=== PATIENT | male | born 1955 | race Caucasian/White ===

== ENCOUNTER 2017-09-14 12:22 | Emergency (ER) | payer OTHER ==
[~2017-09-14] VITALS: Ht 175.3 cm; Wt 86.2 kg
[~2017-09-14 12:22] MED LIST: ACETAMINOPHEN-1 EAC1 PO; AMOXICILLIN 50500 MG PO; BACTRIM DS TAB1 EACH PO; CARISOPRODOL 3350 MG PO; CLEOCIN HCL300 MG PO; CYCLOBENZAPRINE5 MG PO; DAYPRO600 MG PO; FLEXERIL PO; HCTZ PO; HYDROCODON-ACE1 EAC7 PO; HYDROCODONE-AP1 EAC6 PO; HYDROCODONE-APA1 TA1 PO; IBUPROFEN 800800 M1 PO; IBUPROFEN 800800 MG PO; LIORESAL 10 MG10 MG PO; LOVASTAT20; MECLIZINE HCL25 M1 PO; MEDROL DOSPAK21 TA1 PO; MEDROL DOSPAK21 TAB PO; MEDROLDOSEPACK PO; MELOXICAM7.5 MG PO; NAPROSYN375 MG PO; NAPROSYN500 MG PO; NEURONTIN 300300 M1 PO; NEURONTIN 300M300 M2; NEURONTIN600 MG PO; NEXIUM40 MG PO; NORCO 5-325 TA1 EAC1 PO; NORCO 5-325 TA1 EACH PO; NORFLEX100 MG PO; OMEPRAZOLE20 M1 PO; PAROXETINE HCL20 MG; PAROXETINE HCL40 MG PO; PAXIL 20 MG TAB20 MG PO; PENICILLIN V P500 MG PO; PENICILLIN VK250 MG PO; PENICILLIN VK500 M1 PO; PERCOCET 5-3251 EACH PO; PREDNISONE 20 M20 M1 PO; PREDNISONE 20 M20 MG PO; PRILOSEC 10MG C10 M1 PO; PRILOSEC OTC20 MG PO; PRILOSEC20 MG PO; ROBAXIN 750 MG750 M1 PO; ROBAXIN 750 MG750 MG PO; ROBAXIN500 MG PO; SKELAXIN 800 M800 M1 PO; TRAMADOL 50 MG50 MG PO; ULTRAM 50MG TAB50 MG PO; ULTRAM50 MG PO; VALIUM5 MG PO; VICODIN 5-3001 EACH PO; VICODIN 5-5001 EACH PO; ZANTAC 150MG T150 M1; ZANTAC 7575 MG; ZOFRAN ODT4 MG PO; ZPAK PO
[2017-09-14 12:35] VITALS: BP 169/98
[2017-09-14] MEDS ORDERED: MEDROLDOSEPACK PO (13:09)
[2017-09-14] MEDS ORDERED: HYDROCODONE-AP1 EAC6 PO (13:09)
== END 2017-09-14 13:26 | disposition home or self-care (01) ==
LOC: M.ERS 12:22
DX: R51 Headache (principal); M54.5 Low back pain; I10 Essential (primary) hypertension; K21.9 Gastro-esophageal reflux disease without esophagitis; F41.9 Anxiety disorder, unspecified; G89.29 Other chronic pain; Z88.5 Allergy status to narcotic agent

== ENCOUNTER 2017-11-15 21:20 | Emergency (ER) | payer OTHER ==
[~2017-11-15] VITALS: Ht 177.8 cm; Wt 86.2 kg
[2017-11-15] MEDS ORDERED: VENTOLIN HFA 1818 GM INH (21:51)
[2017-11-15] MEDS ORDERED: AMOXICILLIN 50500 MG PO (21:51)
[2017-11-15] MEDS ORDERED: PREDNISONE 20 M20 M1 PO (21:51)
[2017-11-15] MEDS ORDERED: NORCO 5-325 TA1 EACH PO (21:51)
[2017-11-15 22:07] VITALS: BP 170/100
== END 2017-11-15 22:10 | disposition home or self-care (01) ==
LOC: M.ERS 21:20
DX: J06.9 Acute upper respiratory infection, unspecified (principal); I10 Essential (primary) hypertension; K21.9 Gastro-esophageal reflux disease without esophagitis; F41.9 Anxiety disorder, unspecified; Z88.5 Allergy status to narcotic agent

== ENCOUNTER 2017-12-09 20:36 | Emergency (ER) | payer OTHER ==
[~2017-12-09] VITALS: Ht 177.8 cm; Wt 61.2 kg
[~2017-12-09 20:36] MED LIST changes: +VENTOLIN HFA 1818 GM INH
[2017-12-09] MEDS ORDERED: HYDROCODONE-AP1 EAC6 PO (21:04)
[2017-12-09 21:10] VITALS: BP 163/89
== END 2017-12-09 21:11 | disposition home or self-care (01) ==
LOC: M.ERS 20:36
DX: M54.2 Cervicalgia (principal); M54.5 Low back pain; G89.29 Other chronic pain; K21.9 Gastro-esophageal reflux disease without esophagitis; I10 Essential (primary) hypertension; Z88.5 Allergy status to narcotic agent

== ENCOUNTER 2018-01-11 11:04 | Emergency (ER) | payer OTHER ==
[~2018-01-11] VITALS: Ht 177.8 cm; Wt 86.2 kg
[2018-01-11 11:44] LABS: ABSOLUTE BASOPHILS 0.1 thou/uL (0.0-0.2); ABSOLUTE EOSINOPHILS 0.1 thou/uL (0.0-0.7); ABSOLUTE LYMPHOCYTES 1.6 thou/uL (0.8-5.3); ABSOLUTE MONOCYTES 0.4 thou/uL (0.0-1.2); ABSOLUTE NEUTROPHILS 4.6 thou/uL (1.6-8.1); BASOPHILS 1.1 %; EOSINOPHILS 1.8 %; HEMATOCRIT 42.5 % (42.0-52.0); MCH 27.2 pg (26.0-34.0); MCHC 32.8 g/dL (28.0-37.0); MONOCYTES 6.5 %; MPV 7.5 fl. (7.2-11.1); NUCLEATED RBCS 0 /100WBC; PLATELET COUNT* 283 thou/uL (150-400); POLYS 66.6 %; RBC 5.13 mil/uL (4.50-6.00); WBC 6.8 thou/uL (4.0-11.0)
[2018-01-11 11:54] LABS: ANION GAP 8 mmol/L (7-16); BUN 11 mg/dL (7-18); CHLORIDE 107 mmol/L (98-107); CO2 28 mmol/L (21-32); CREATININE 0.9 mg/dL (0.6-1.3); GLUCOSE 124 mg/dL (70-99); SODIUM 143 mmol/L (136-145)
[2018-01-11 12:01] LABS: ALBUMIN 3.6 g/dL (3.4-5.0); ALKALINE PHOSPHATASE 132 U/L (46-116); SGOT 19 U/L (15-37); SGPT 33 U/L (30-65); TOTAL BILIRUBIN 0.3 mg/dL (<0.1-1.0); TOTAL PROTEIN 7.4 g/dL (6.4-8.2); TROPONIN-I LEVEL <0.06 ng/mL (<0.06)
[2018-01-11] MEDS ORDERED: TORADOL 10 MG T10 MG PO (12:33)
[2018-01-11 12:43] VITALS: BP 158/93
--- NOTE | 2018-01-12 13:22 | EKG ---
[place] [address] ELECTROCARDIOGRAM REPORT Name: LUIS SCHREIBER Room: [facility]#: [id number] Admission: 01/11/18 Attend Phys: Discharge: 01/11/18 Date of : 59 Report #: [id number] THIS REPORT FOR: //name// [facility] ED Test Date: 2018-01-11 Test Time: 11:31:27 Pat Name: LUIS SCHREIBER Department: Room: Gender: M Retort Or Condenser Press Operator: Jeevan QUISPE : 1955 Requested By: Sarah Farrell Order Number: [id number] MD: Andrzej Dyson Measurements Intervals [place] Rate: 62 P: 69 NC: 99 QRS: 25 QRSD: 97 T: 50 QT: 419 QTc: 426 Interpretive Statements Sinus rhythm Short [place] interval Compared to ECG 07/24/2017 16:54:59 Short NC interval now present Sinus tachycardia no longer present Electronically Signed On 01-12-2018 13:22:42 CDT by Andrzej Dyson [email or web address] <ELECTRONICALLY SIGNED> By: Andrzej Dyson MD, [facility] 01/12/18 1322 1131 113 Andrzej Dyson MD, FACC /EPI
== END 2018-01-11 12:44 | disposition home or self-care (01) ==
LOC: M.ERS 11:04
PROVIDERS: Nurse Practitioner Family
DX: S43.492A Other sprain of left shoulder joint, initial encounter (principal); G89.29 Other chronic pain; M54.2 Cervicalgia; F41.9 Anxiety disorder, unspecified; I10 Essential (primary) hypertension; K21.9 Gastro-esophageal reflux disease without esophagitis; Z88.5 Allergy status to narcotic agent; Z88.6 Allergy status to analgesic agent; X50.9XXA Other and unspecified overexertion or strenuous movements or postures, initial encounter; Y93.89 Activity, other specified; Y92.89 Other specified places as the place of occurrence of the external cause; Y99.8 Other external cause status

== ENCOUNTER 2018-02-19 10:40 | Emergency (ER) | payer OTHER ==
[~2018-02-19] VITALS: Ht 177.8 cm; Wt 86.2 kg
[~2018-02-19 10:40] MED LIST changes: +TORADOL 10 MG T10 MG PO
[2018-02-19] MEDS ORDERED: NORCO 5-325 TA1 EACH PO (11:21)
[2018-02-19] MEDS ORDERED: IBUPROFEN 800800 MG PO (11:21)
[2018-02-19 11:35] VITALS: BP 172/92
== END 2018-02-19 11:36 | disposition home or self-care (01) ==
LOC: M.ERS 10:40
DX: M25.512 Pain in left shoulder (principal); K21.9 Gastro-esophageal reflux disease without esophagitis; G89.29 Other chronic pain; M54.2 Cervicalgia; F41.9 Anxiety disorder, unspecified; I10 Essential (primary) hypertension; Z88.5 Allergy status to narcotic agent; Z88.6 Allergy status to analgesic agent

== ENCOUNTER 2018-05-07 11:06 | Emergency (ER) | payer OTHER ==
[~2018-05-07] VITALS: Ht 177.8 cm; Wt 83.9 kg
[2018-05-07] MEDS ORDERED: PAXIL10 MG PO (11:24)
[2018-05-07] MEDS ORDERED: PROTONIX40 M1 PO (11:24)
[2018-05-07] MEDS ORDERED: FLEXERIL PO (11:49)
[2018-05-07] MEDS ORDERED: IBUPROFEN 800800 M1 PO (11:49)
[2018-05-07] MEDS ORDERED: NORCO 5-325 TA1 EACH PO (11:49)
[2018-05-07 12:16] VITALS: BP 146/72
== END 2018-05-07 12:16 | disposition home or self-care (01) ==
LOC: M.ERS 11:06
DX: M54.5 Low back pain (principal); F41.9 Anxiety disorder, unspecified; I10 Essential (primary) hypertension; K21.9 Gastro-esophageal reflux disease without esophagitis; G89.29 Other chronic pain; M54.2 Cervicalgia; Z88.5 Allergy status to narcotic agent; Z88.6 Allergy status to analgesic agent

== ENCOUNTER 2018-05-12 15:26 | Emergency (ER) | payer OTHER ==
[~2018-05-12] VITALS: Ht 177.8 cm; Wt 83.9 kg
[~2018-05-12 15:26] MED LIST changes: +PAXIL10 MG PO; +PROTONIX40 M1 PO
[2018-05-12] MEDS ORDERED: NAPROSYN500 MG PO (16:18)
[2018-05-12] MEDS ORDERED: MEDROLDOSEPACK PO (16:18)
[2018-05-12] MEDS ORDERED: ZANAFLEX4 MG PO (16:18)
[2018-05-12 16:26] VITALS: BP 186/99
== END 2018-05-12 16:26 | disposition home or self-care (01) ==
LOC: M.ERS 15:26
DX: M54.32 Sciatica, left side (principal); G89.29 Other chronic pain; M54.2 Cervicalgia; F41.9 Anxiety disorder, unspecified; K21.9 Gastro-esophageal reflux disease without esophagitis; I10 Essential (primary) hypertension; Z88.5 Allergy status to narcotic agent; Z88.6 Allergy status to analgesic agent

== ENCOUNTER 2018-06-02 19:38 | Emergency (ER) | payer OTHER ==
[~2018-06-02] VITALS: Ht 177.8 cm; Wt 86.2 kg
[~2018-06-02 19:38] MED LIST changes: +ZANAFLEX4 MG PO
[2018-06-02] MEDS ORDERED: PRILOSEC 20 MG20 MG (19:51)
[2018-06-02 21:37] LABS: ABSOLUTE BASOPHILS 0.1 thou/uL (0.0-0.2); ABSOLUTE EOSINOPHILS 0.1 thou/uL (0.0-0.7); ABSOLUTE LYMPHOCYTES 2.2 thou/uL (0.8-5.3); ABSOLUTE MONOCYTES 0.6 thou/uL (0.0-1.2); ABSOLUTE NEUTROPHILS 5.5 thou/uL (1.6-8.1); BASOPHILS 1.2 %; EOSINOPHILS 1.7 %; HEMATOCRIT 39.4 % (42.0-52.0); HEMOGLOBIN 12.8 gm/dL (14.0-18.0); LYMPHOCYTES 25.9 %; MCH 26.6 pg (26.0-34.0); MCHC 32.5 g/dL (28.0-37.0); MCV 81.8 fL (80.0-100.0); MONOCYTES 6.7 %; MPV 7.7 fl. (7.2-11.1); NUCLEATED RBCS 0 /100WBC; PLATELET COUNT* 271 thou/uL (150-400); POLYS 64.5 %; RBC 4.82 mil/uL (4.50-6.00); RDW-CV 15.2 % (10.5-14.5); WBC 8.6 thou/uL (4.0-11.0)
[2018-06-02 21:43] LABS: ANION GAP 7 mmol/L (7-16); BUN 14 mg/dL (7-18); CALCIUM 8.3 mg/dL (8.5-10.1); CHLORIDE 106 mmol/L (98-107); CO2 28 mmol/L (21-32); CREATININE 0.9 mg/dL (0.6-1.3); GLUCOSE 135 mg/dL (70-99); POTASSIUM 3.6 mmol/L (3.5-5.1); SODIUM 141 mmol/L (136-145)
[2018-06-02 21:50] LABS: ALBUMIN 3.2 g/dL (3.4-5.0); ALKALINE PHOSPHATASE 108 U/L (46-116); SGOT 23 U/L (15-37); SGPT 29 U/L (30-65); TOTAL BILIRUBIN 0.2 mg/dL (<0.1-1.0); TOTAL PROTEIN 7.1 g/dL (6.4-8.2); TROPONIN-I LEVEL <0.06 ng/mL (<0.06)
[2018-06-02] MEDS ORDERED: HYDROCHLOROTH12.5 M1 PO (22:36)
[2018-06-02] MEDS ORDERED: ZESTRIL2.5 MG PO (22:36)
[2018-06-02] MEDS ORDERED: ZESTORETIC 20-1 EAC2 PO (22:55)
[2018-06-02 23:01] VITALS: BP 157/91
--- NOTE | 2018-06-03 13:04 | EKG ---
[place] [address] ELECTROCARDIOGRAM REPORT Name: LUIS SCHREIBER Room: [facility]#: [id number] Admission: 06/02/18 Attend Phys: Discharge: 06/02/18 Date of : 59 Report #: [id number] THIS REPORT FOR: //name// [facility] ED Test Date: 2018-06-02 Test Time: 21:43:02 Pat Name: LUIS SCHREIBER Department: Room: Gender: M Inspector Welded Parts: : 1955 Requested By: Rachelle Guerrier Order Number: [id number] MD: Jose Hatch Measurements Intervals [place] Rate: 58 P: 65 NH: 110 QRS: 35 QRSD: 85 T: 41 QT: 427 QTc: 420 Interpretive Statements Sinus rhythm Borderline short [place] interval Probable left atrial enlargement Compared to ECG 01/11/2018 11:31:27 No significant changes Electronically Signed On 06-03-2018 13:03:45 CDT by Jose Hatch [email or web address] <ELECTRONICALLY SIGNED> By: Jose Hatch MD, [facility] 06/03/18 1303 42 42 Jose Hatch MD, [facility] /EPI
== END 2018-06-02 23:03 | disposition home or self-care (01) ==
LOC: M.ERS 19:38
PROVIDERS: Nurse Practitioner Family
DX: I10 Essential (primary) hypertension (principal); K21.9 Gastro-esophageal reflux disease without esophagitis; F41.9 Anxiety disorder, unspecified; Z88.5 Allergy status to narcotic agent; Z88.6 Allergy status to analgesic agent

== ENCOUNTER 2018-06-18 11:29 | Emergency (ER) | payer OTHER ==
[~2018-06-18] VITALS: Ht 177.8 cm; Wt 79.4 kg
[~2018-06-18 11:29] MED LIST changes: +HYDROCHLOROTH12.5 M1 PO; +PRILOSEC 20 MG20 MG; +ZESTORETIC 20-1 EAC2 PO; +ZESTRIL2.5 MG PO
[2018-06-18 12:08] LABS: ABSOLUTE BASOPHILS 0.1 thou/uL (0.0-0.2); ABSOLUTE EOSINOPHILS 0.1 thou/uL (0.0-0.7); ABSOLUTE LYMPHOCYTES 2.3 thou/uL (0.8-5.3); ABSOLUTE MONOCYTES 0.6 thou/uL (0.0-1.2); BASOPHILS 0.9 %; EOSINOPHILS 1.1 %; HEMATOCRIT 46.5 % (42.0-52.0); HEMOGLOBIN 15.2 gm/dL (14.0-18.0); LYMPHOCYTES 25.6 %; MCH 26.4 pg (26.0-34.0); MCHC 32.6 g/dL (28.0-37.0); MCV 80.8 fL (80.0-100.0); MPV 7.4 fl. (7.2-11.1); NUCLEATED RBCS 0 /100WBC; PLATELET COUNT* 320 thou/uL (150-400); POLYS 65.4 %; RBC 5.75 mil/uL (4.50-6.00); RDW-CV 14.9 % (10.5-14.5); WBC 9.1 thou/uL (4.0-11.0)
[2018-06-18 12:17] LABS: ANION GAP 8 mmol/L (7-16); BUN 14 mg/dL (7-18); CHLORIDE 100 mmol/L (98-107); CO2 29 mmol/L (21-32); GLUCOSE 104 mg/dL (70-99); POTASSIUM 3.1 mmol/L (3.5-5.1); SODIUM 137 mmol/L (136-145)
[2018-06-18 12:28] LABS: ALKALINE PHOSPHATASE 129 U/L (46-116); LIPASE 212 U/L (73-393); NT-PRO BRAIN NAT PEPTIDE 15 pg/mL (<300); SGOT 27 U/L (15-37); SGPT 33 U/L (30-65); TOTAL BILIRUBIN 0.6 mg/dL (<0.1-1.0); TOTAL PROTEIN 8.6 g/dL (6.4-8.2); TROPONIN-I LEVEL <0.06 ng/mL (<0.06)
[2018-06-18] MEDS ORDERED: HYDROCODONE-AP1 EAC6 PO (13:35)
[2018-06-18] MEDS ORDERED: PENICILLIN V P500 MG PO (13:35)
[2018-06-18] MEDS ORDERED: FLEXERIL PO (13:35)
[2018-06-18 14:19] VITALS: BP 148/83
--- NOTE | 2018-06-18 17:28 | EKG ---
[place] [address] ELECTROCARDIOGRAM REPORT Name: LUIS SCHREIBER [id number] Admission: 06/18/18 Attend Phys: Discharge: 06/18/18 Date of : 59 Report #: [id number] THIS REPORT FOR: //name// [facility] ED Test Date: 2018-06-18 Test Time: 12:00:13 Pat Name: LUIS SCHREIBER Department: Room: Gender: M Sample Case Porter: : 1955 Requested By: Anthony Mullen Order Number: [id number] : Sukumar Barrios Measurements Intervals [place] Rate: 72 P: 51 AR: 108 QRS: 23 QRSD: 99 T: 35 QT: 411 QTc: 450 Interpretive Statements Sinus rhythm Short AR interval Compared to ECG 06/02/2018 21:43:02 No significant changes Electronically Signed On 06-18-2018 17:28:35 CDT by Sukumar Barrios [email or web address] <ELECTRONICALLY SIGNED> By: Sukumar Barrios MD, [facility] 06/18/18 [address] [facility] Sukumar Barrios MD, FACC /EPI
--- NOTE | 2018-06-18 17:30 | EKG ---
[place] [address] ELECTROCARDIOGRAM REPORT Name: LUIS SCHREIBER Room: [facility]#: [id number] Admission: 06/18/18 Attend Phys: Discharge: 06/18/18 Date of : 59 Report #: [id number] THIS REPORT FOR: //name// [facility] ED Test Date: 2018-06-18 Test Time: 13:49:32 Pat Name: LUIS SCHREIBER Department: Room: Gender: M Forward Air Controller/Air Officer: Jeevan QUISPE : 1955 Requested By: Anthony Mullen Order Number: [id number] MD: Sukumar Barrios Measurements Intervals [place] Rate: 93 P: 61 MI: 106 QRS: 13 QRSD: 100 T: 42 QT: 378 QTc: 471 Interpretive Statements Sinus rhythm Short [place] interval Abnormal R-wave progression, early transition Abnormal inferior Q waves Minimal ST depression, lateral leads Compared to ECG 06/02/2018 21:43:02 Inferior Q waves now present Q waves now present ST (T wave) deviation now present Electronically Signed On 06-18-2018 17:30:02 CDT by Sukumar Barrios [email or web address] <ELECTRONICALLY SIGNED> By: Sukumar Barrios MD, FAC 06/18/18 1730 1349 1349 Sukumar Barrios MD, [facility] /EPI
== END 2018-06-18 14:20 | disposition left against medical advice (07) ==
LOC: M.ERS 11:29
PROVIDERS: Emergency Medicine Emergency Medical Services
DX: R07.9 Chest pain, unspecified (principal); M26.602 Left temporomandibular joint disorder, unspecified; F41.9 Anxiety disorder, unspecified; K21.9 Gastro-esophageal reflux disease without esophagitis; I10 Essential (primary) hypertension; Z88.5 Allergy status to narcotic agent; Z88.8 Allergy status to other drugs, medicaments and biological substances

== ENCOUNTER 2018-07-14 09:14 | Emergency (ER) | payer OTHER ==
[~2018-07-14] VITALS: Ht 177.8 cm; Wt 77.1 kg
[2018-07-14 09:29] LABS: URINE BILIRUBIN NEGATIVE (Negative); URINE BLOOD NEGATIVE (Negative); URINE CLARITY CLEAR; URINE COLOR YELLOW; URINE GLUCOSE-RANDOM NEGATIVE (Negative); URINE KETONES NEGATIVE (Negative); URINE LEUKOCYTES-REFLEX NEGATIVE (Negative); URINE NITRITE-REFLEX NEGATIVE (Negative); URINE PROTEIN NEGATIVE (Negative); URINE SPECIFIC GRAVITY 1.025 (1.005-1.030); URINE UROBILINOGEN 0.2 E.U./dl (0.2-1.0)
[2018-07-14 09:38] LABS: ABSOLUTE LYMPHOCYTES 1.8 thou/uL (0.8-5.3); ABSOLUTE MONOCYTES 0.6 thou/uL (0.0-1.2); BASOPHILS 0.5 %; EOSINOPHILS 0.3 %; HEMATOCRIT 44.3 % (42.0-52.0); HEMOGLOBIN 14.6 gm/dL (14.0-18.0); LYMPHOCYTES 19.4 %; MCH 26.8 pg (26.0-34.0); MCV 81.4 fL (80.0-100.0); MONOCYTES 6.3 %; MPV 7.2 fl. (7.2-11.1); NUCLEATED RBCS 0 /100WBC; PLATELET COUNT* 329 thou/uL (150-400); POLYS 73.5 %; RBC 5.44 mil/uL (4.50-6.00); RDW-CV 15.3 % (10.5-14.5); WBC 9.5 thou/uL (4.0-11.0)
[2018-07-14 09:46] LABS: ANION GAP 7 mmol/L (7-16); BUN 14 mg/dL (7-18); CHLORIDE 99 mmol/L (98-107); CO2 30 mmol/L (21-32); GLUCOSE 126 mg/dL (70-99); POTASSIUM 3.5 mmol/L (3.5-5.1); SODIUM 136 mmol/L (136-145)
[2018-07-14 09:52] LABS: ALBUMIN 3.8 g/dL (3.4-5.0); ALKALINE PHOSPHATASE 120 U/L (46-116); LIPASE 132 U/L (73-393); SGOT 18 U/L (15-37); SGPT 31 U/L (30-65); TOTAL BILIRUBIN 0.2 mg/dL (<0.1-1.0); TOTAL PROTEIN 7.9 g/dL (6.4-8.2); TROPONIN-I LEVEL <0.06 ng/mL (<0.06)
[2018-07-14] MEDS ORDERED: HYDROCODONE-AP1 EAC6 PO (10:58)
[2018-07-14] MEDS ORDERED: ZOFRAN ODT4 MG DISSOLVE (10:58)
[2018-07-14 11:18] VITALS: BP 162/85
--- NOTE | 2018-07-14 17:53 | EKG ---
[place] [address] ELECTROCARDIOGRAM REPORT Name: LUIS SCHREIBER Room: [facility]#: [id number] Admission: 07/14/18 Attend Phys: Discharge: 07/14/18 Date of : 59 Report #: [id number] THIS REPORT FOR: //name// [facility] ED Test Date: 2018-07-14 Test Time: 09:32:19 Pat Name: LUIS SCHREIBER Department: Room: Gender: M Director Pediatric: Jeevan QUISPE : 1955 Requested By: Anthony Mullen Order Number: [id number] MD: Andrzej Dyson Measurements Intervals [place] Rate: 90 P: 63 RI: 109 QRS: 20 QRSD: 103 T: 35 QT: 370 QTc: 453 Interpretive Statements Sinus rhythm Short [place] interval RSR' in V1 or V2, probably normal variant Minimal ST depression, lateral leads Compared to ECG 06/18/2018 13:49:32 RSR' in V1 or V2 now present Inferior Q waves no longer present Q waves no longer present ST (T wave) deviation still present Electronically Signed On 07-14-2018 17:53:22 CDT by Andrzej Dyson [email or web address] <ELECTRONICALLY SIGNED> By: Andrzej Dyson MD, FACC 07/14/18 1753 0932 0932 Andrzej Dyson MD, FACC /EPI
== END 2018-07-14 11:18 | disposition home or self-care (01) ==
LOC: M.ERS 09:14
PROVIDERS: Emergency Medicine Emergency Medical Services
DX: K42.9 Umbilical hernia without obstruction or gangrene (principal); G89.29 Other chronic pain; M54.2 Cervicalgia; F41.9 Anxiety disorder, unspecified; I10 Essential (primary) hypertension; K21.9 Gastro-esophageal reflux disease without esophagitis; Z88.5 Allergy status to narcotic agent; Z88.6 Allergy status to analgesic agent

== ENCOUNTER 2018-07-31 20:52 | Emergency (ER) | payer OTHER ==
[~2018-07-31] VITALS: Ht 177.8 cm; Wt 77.1 kg
[~2018-07-31 20:52] MED LIST changes: +ZOFRAN ODT4 MG DISSOLVE
[2018-07-31] MEDS ORDERED: NORCO 5-325 TA1 EAC1 PO (22:31)
[2018-07-31 22:41] VITALS: BP 167/93
== END 2018-07-31 22:43 | disposition home or self-care (01) ==
LOC: M.ERS 20:52
DX: S30.0XXA Contusion of lower back and pelvis, initial encounter (principal); G89.29 Other chronic pain; M54.2 Cervicalgia; F41.9 Anxiety disorder, unspecified; K21.9 Gastro-esophageal reflux disease without esophagitis; I10 Essential (primary) hypertension; Z88.5 Allergy status to narcotic agent; Z88.6 Allergy status to analgesic agent; W18.39XA Other fall on same level, initial encounter; Y93.89 Activity, other specified; Y92.89 Other specified places as the place of occurrence of the external cause; Y99.8 Other external cause status

== ENCOUNTER 2018-08-26 12:20 | Emergency (ER) | payer OTHER ==
[~2018-08-26] VITALS: Ht 177.8 cm; Wt 81.7 kg
[2018-08-26 12:51] LABS: ABSOLUTE BASOPHILS 0.1 thou/uL (0.0-0.2); ABSOLUTE EOSINOPHILS 0.1 thou/uL (0.0-0.7); ABSOLUTE LYMPHOCYTES 1.4 thou/uL (0.8-5.3); ABSOLUTE MONOCYTES 0.7 thou/uL (0.0-1.2); ABSOLUTE NEUTROPHILS 10.1 thou/uL (1.6-8.1); BASOPHILS 0.4 %; EOSINOPHILS 0.8 %; HEMATOCRIT 41.4 % (42.0-52.0); HEMOGLOBIN 13.5 gm/dL (14.0-18.0); LYMPHOCYTES 11.4 %; MCH 26.5 pg (26.0-34.0); MCHC 32.7 g/dL (28.0-37.0); MONOCYTES 5.8 %; MPV 7.2 fl. (7.2-11.1); NUCLEATED RBCS 0 /100WBC; PLATELET COUNT* 247 thou/uL (150-400); POLYS 81.6 %; RBC 5.11 mil/uL (4.50-6.00); RDW-CV 15.6 % (10.5-14.5); WBC 12.4 thou/uL (4.0-11.0)
[2018-08-26 13:03] LABS: ANION GAP 8 mmol/L (7-16); BUN 12 mg/dL (7-18); CALCIUM 8.9 mg/dL (8.5-10.1); CHLORIDE 104 mmol/L (98-107); CO2 27 mmol/L (21-32); GLUCOSE 121 mg/dL (70-99); POTASSIUM 4.1 mmol/L (3.5-5.1); SODIUM 139 mmol/L (136-145)
[2018-08-26 13:07] LABS: APTT 28.2 Seconds (25.0-31.3); PROTIME 10.5 Seconds (9.20-11.50)
[2018-08-26 13:22] LABS: ALBUMIN 3.6 g/dL (3.4-5.0); ALKALINE PHOSPHATASE 117 U/L (46-116); LIPASE 90 U/L (73-393); NT-PRO BRAIN NAT PEPTIDE 123 pg/mL (<300); SGOT 14 U/L (15-37); SGPT 27 U/L (30-65); TOTAL BILIRUBIN 0.3 mg/dL (<0.1-1.0); TOTAL PROTEIN 7.5 g/dL (6.4-8.2); TROPONIN-I LEVEL <0.06 ng/mL (<0.06)
[2018-08-26 13:51] VITALS: BP 172/88
--- NOTE | 2018-08-26 14:32 | EKG ---
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: JESIKA : 1955 Requested By: Daniel Luna Order Number: [id number] MD: Jose Hatch Measurements Intervals [place] Rate: 78 P: 71 DE: 114 QRS: 41 QRSD: 96 T: 37 QT: 376 QTc: 429 Interpretive Statements Sinus rhythm Atrial premature complexes Borderline short [place] interval RSR' in V1 or V2, right VCD or RVH Compared to ECG 07/14/2018 09:32:19 Atrial premature complex(es) now present Right ventricular hypertrophy now present ST (T wave) deviation no longer present Electronically Signed On 08-26-2018 14:32:33 LIFE INSURANCE UNDERWRITER by Jose Hatch [email or web address] <ELECTRONICALLY SIGNED> By: Jose Hatch MD, FACC 08/26/18 1432 1224 1224 Jose Hatch MD, FACC /EPI
[2018-08-27 15:57] LABS: CK-MB MASS < 0.5 ng/mL (<0.5-3.6)
== END 2018-08-26 13:51 | disposition home or self-care (01) ==
LOC: M.ERS 12:20
PROVIDERS: Family Medicine
DX: R07.89 Other chest pain (principal); F41.9 Anxiety disorder, unspecified; K21.9 Gastro-esophageal reflux disease without esophagitis; I10 Essential (primary) hypertension; G89.29 Other chronic pain; M54.2 Cervicalgia; Z88.5 Allergy status to narcotic agent; Z88.6 Allergy status to analgesic agent

== ENCOUNTER 2018-09-03 20:48 | Emergency (ER) | payer OTHER ==
[~2018-09-03] VITALS: Ht 177.8 cm; Wt 80.7 kg
[2018-09-03 21:40] LABS: ABSOLUTE BASOPHILS 0.1 thou/uL (0.0-0.2); ABSOLUTE EOSINOPHILS 0.1 thou/uL (0.0-0.7); ABSOLUTE LYMPHOCYTES 3.4 thou/uL (0.8-5.3); ABSOLUTE MONOCYTES 1.2 thou/uL (0.0-1.2); ABSOLUTE NEUTROPHILS 7.5 thou/uL (1.6-8.1); BASOPHILS 1.1 %; EOSINOPHILS 0.7 %; HEMATOCRIT 42.1 % (42.0-52.0); HEMOGLOBIN 13.9 gm/dL (14.0-18.0); LYMPHOCYTES 27.9 %; MCH 26.8 pg (26.0-34.0); MCHC 33.1 g/dL (28.0-37.0); MCV 81.1 fL (80.0-100.0); MONOCYTES 9.4 %; MPV 7.5 fl. (7.2-11.1); NUCLEATED RBCS 0 /100WBC; PLATELET COUNT* 344 thou/uL (150-400); POLYS 60.9 %; RBC 5.19 mil/uL (4.50-6.00); RDW-CV 15.9 % (10.5-14.5); WBC 12.3 thou/uL (4.0-11.0)
[2018-09-03 21:50] LABS: ANION GAP 9 mmol/L (7-16); BUN 11 mg/dL (7-18); CALCIUM 9.1 mg/dL (8.5-10.1); CHLORIDE 101 mmol/L (98-107); CO2 29 mmol/L (21-32); CREATININE 1.1 mg/dL (0.6-1.3); GLUCOSE 105 mg/dL (70-99); POTASSIUM 4.1 mmol/L (3.5-5.1); SODIUM 139 mmol/L (136-145)
[2018-09-03 21:57] LABS: ALBUMIN 3.6 g/dL (3.4-5.0); ALKALINE PHOSPHATASE 102 U/L (46-116); LIPASE 227 U/L (73-393); SGOT 18 U/L (15-37); SGPT 33 U/L (30-65); TOTAL BILIRUBIN 0.3 mg/dL (<0.1-1.0); TOTAL PROTEIN 7.8 g/dL (6.4-8.2); TROPONIN-I LEVEL <0.06 ng/mL (<0.06)
[2018-09-03] MEDS ORDERED: ZOFRAN ODT4 MG SUBLING (22:35)
[2018-09-03] MEDS ORDERED: NORCO 5-325 TA1 EACH PO (22:35)
[2018-09-03 22:58] VITALS: BP 128/89
--- NOTE | 2018-09-05 14:46 | EKG ---
[place] [address] ELECTROCARDIOGRAM REPORT Name: LUIS SCHREIBER Room: [facility]#: [id number] Admission: 09/03/18 Attend Phys: Discharge: 09/03/18 Date of : 59 Report #: [id number] THIS REPORT FOR: //name// [facility] ED Test Date: 2018-09-03 Test Time: 21:57:16 Pat Name: LUIS SCHREIBER Department: Room: Gender: M Quartz Orientator: SABINO : 1955 Requested By: Daniel Luna Order Number: [id number] MD: Sukumar Barrios Measurements Intervals [place] Rate: 86 P: 47 MO: 110 QRS: 27 QRSD: 103 T: 34 QT: 394 QTc: 472 Interpretive Statements Sinus rhythm Borderline short [place] interval RSR' in V1 or V2, right VCD or RVH Compared to ECG 08/26/2018 12:24:00 Atrial premature complex(es) no longer present Electronically Signed On 09-05-2018 14:46:07 VESSEL WELDER by Sukumar Barrios [email or web address] <ELECTRONICALLY SIGNED> By: Sukumar Barrios MD, [facility] 09/05/18 1446 2157 2157 Sukumar Barrios MD, [facility] /EPI
== END 2018-09-03 23:00 | disposition home or self-care (01) ==
LOC: M.ERS 20:48
PROVIDERS: Family Medicine
DX: R10.84 Generalized abdominal pain (principal); R11.0 Nausea; R19.7 Diarrhea, unspecified; K21.9 Gastro-esophageal reflux disease without esophagitis; I10 Essential (primary) hypertension

== ENCOUNTER 2018-11-06 21:02 | Emergency (ER) | payer OTHER ==
[~2018-11-06] VITALS: Ht 177.8 cm; Wt 81.7 kg
[~2018-11-06 21:02] MED LIST changes: +ZOFRAN ODT4 MG SUBLING
[2018-11-06 21:20] LABS: URINE BILIRUBIN NEGATIVE (Negative); URINE BLOOD NEGATIVE (Negative); URINE CLARITY CLEAR; URINE COLOR YELLOW; URINE GLUCOSE-RANDOM NEGATIVE (Negative); URINE KETONES NEGATIVE (Negative); URINE LEUKOCYTES-REFLEX NEGATIVE (Negative); URINE NITRITE-REFLEX NEGATIVE (Negative); URINE PROTEIN NEGATIVE (Negative); URINE SPECIFIC GRAVITY >= 1.030 (1.005-1.030); URINE UROBILINOGEN 0.2 E.U./dl (0.2-1.0)
[2018-11-06 21:30] LABS: AMP/METHAMP Negative (Negative); BARBITURATES Negative (Negative); BENZODIAZEPINES Negative (Negative); COCAINE Negative (Negative); METHADONE Negative (Negative); OPIATES POSITIVE (Negative); PCP Negative (Negative); THC Negative (Negative)
[2018-11-06 21:30] LABS: ABSOLUTE BASOPHILS 0.1 thou/uL (0.0-0.2); ABSOLUTE EOSINOPHILS 0.1 thou/uL (0.0-0.7); ABSOLUTE LYMPHOCYTES 3.8 thou/uL (0.8-5.3); ABSOLUTE MONOCYTES 1.1 thou/uL (0.0-1.2); ABSOLUTE NEUTROPHILS 7.8 thou/uL (1.6-8.1); BASOPHILS 0.7 %; EOSINOPHILS 0.7 %; HEMATOCRIT 42.2 % (42.0-52.0); HEMOGLOBIN 13.8 gm/dL (14.0-18.0); LYMPHOCYTES 29.6 %; MCH 26.4 pg (26.0-34.0); MCHC 32.7 g/dL (28.0-37.0); MCV 80.7 fL (80.0-100.0); MONOCYTES 8.4 %; MPV 7.4 fl. (7.2-11.1); NUCLEATED RBCS 0 /100WBC; PLATELET COUNT* 327 thou/uL (150-400); POLYS 60.6 %; RBC 5.23 mil/uL (4.50-6.00); RDW-CV 15.7 % (10.5-14.5); WBC 12.8 thou/uL (4.0-11.0)
[2018-11-06 21:39] LABS: CALCIUM 9.1 mg/dL (8.5-10.1); POTASSIUM 3.3 mmol/L (3.5-5.1)
[2018-11-06 21:44] LABS: TOTAL BILIRUBIN 0.2 mg/dL (<0.1-1.0); TOTAL PROTEIN 8.1 g/dL (6.4-8.2)
[2018-11-06] MEDS ORDERED: NORCO 5-325 TA1 EACH PO (22:02)
[2018-11-06 22:47] VITALS: BP 145/87
--- NOTE | 2018-11-07 15:31 | EKG ---
[place] [address] ELECTROCARDIOGRAM REPORT Name: LUIS SCHREIBER [id number] Admission: 11/06/18 Attend Phys: Discharge: 11/06/18 Date of : 59 Report #: [id number] THIS REPORT FOR: //name// [facility] Test Date: 2018-11-06 Test Time: 21:30:12 Pat Name: LUIS SCHREIBER Department: Room: Gender: Manager Compensation: Jeevan VAUGHN : 1955 Requested By: Arielle Pisano Order Number: [id number] MD: Sukumar Barrios Measurements Intervals [place] Rate: 85 P: 43 ND: 108 QRS: 20 QRSD: 97 T: 53 QT: 382 QTc: 455 Interpretive Statements Sinus rhythm Short [place] interval Abnormal R-wave progression, early transition Electronically Signed On 11-07-2018 15:31:31 FACILITIES CUSTODIAN by Sukumar Barrios [email or web address] <ELECTRONICALLY SIGNED> By: Sukumar Barrios MD, [facility] 11/07/18 1531 213 2130 Sukumar Barrios MD, FACC /EPI
== END 2018-11-06 22:48 | disposition home or self-care (01) ==
LOC: M.ERS 21:02
PROVIDERS: Nurse Practitioner
DX: R10.30 Lower abdominal pain, unspecified (principal); M54.2 Cervicalgia; G89.29 Other chronic pain; M54.9 Dorsalgia, unspecified; F41.9 Anxiety disorder, unspecified; K21.9 Gastro-esophageal reflux disease without esophagitis; I10 Essential (primary) hypertension; Z88.5 Allergy status to narcotic agent; Z88.6 Allergy status to analgesic agent

== ENCOUNTER 2018-12-27 12:18 | Emergency (ER) | payer OTHER ==
[~2018-12-27] VITALS: Ht 177.8 cm; Wt 83.9 kg
[2018-12-27 13:03] LABS: ABSOLUTE EOSINOPHILS 0.1 thou/uL (0.0-0.7); ABSOLUTE LYMPHOCYTES 2.3 thou/uL (0.8-5.3); ABSOLUTE MONOCYTES 0.6 thou/uL (0.0-1.2); ABSOLUTE NEUTROPHILS 5.8 thou/uL (1.6-8.1); BASOPHILS 0.3 %; EOSINOPHILS 0.7 %; HEMATOCRIT 41.6 % (42.0-52.0); HEMOGLOBIN 13.6 gm/dL (14.0-18.0); LYMPHOCYTES 26.4 %; MCH 26.1 pg (26.0-34.0); MCHC 32.7 g/dL (28.0-37.0); MCV 79.8 fL (80.0-100.0); MONOCYTES 6.7 %; MPV 7.7 fl. (7.2-11.1); NUCLEATED RBCS 0 /100WBC; PLATELET COUNT* 295 thou/uL (150-400); POLYS 65.9 %; RBC 5.21 mil/uL (4.50-6.00); RDW-CV 15.9 % (10.5-14.5); WBC 8.8 thou/uL (4.0-11.0)
[2018-12-27] MEDS ORDERED: NORCO 5-325 TA1 EACH PO (13:07)
[2018-12-27 13:16] LABS: ALBUMIN 3.9 g/dL (3.4-5.0); POTASSIUM 3.3 mmol/L (3.5-5.1); TOTAL BILIRUBIN 0.4 mg/dL (<0.1-1.0); TOTAL PROTEIN 7.9 g/dL (6.4-8.2)
[2018-12-27] MEDS ORDERED: ZOFRAN ODT4 MG SUBLING (13:38)
[2018-12-27 13:47] VITALS: BP 168/88
== END 2018-12-27 13:48 | disposition home or self-care (01) ==
LOC: M.ERS 12:18
PROVIDERS: Family Medicine
DX: R10.9 Unspecified abdominal pain (principal); M54.2 Cervicalgia; G89.29 Other chronic pain; K21.9 Gastro-esophageal reflux disease without esophagitis; F41.9 Anxiety disorder, unspecified; I10 Essential (primary) hypertension; Z88.5 Allergy status to narcotic agent; Z88.6 Allergy status to analgesic agent

== ENCOUNTER 2019-01-08 09:32 | Emergency (ER) | payer OTHER ==
[~2019-01-08] VITALS: Ht 177.8 cm; Wt 80.7 kg
[2019-01-08] MEDS ORDERED: FLEXERIL PO (10:18)
[2019-01-08] MEDS ORDERED: NORCO 5-325 TA1 EACH PO (10:18)
[2019-01-08] MEDS ORDERED: NABUMETONE 750750 M1 PO (10:18)
[2019-01-08 10:34] VITALS: BP 142/72
== END 2019-01-08 10:35 | disposition home or self-care (01) ==
LOC: M.ERS 09:32
DX: S16.1XXA Strain of muscle, fascia and tendon at neck level, initial encounter (principal); G89.29 Other chronic pain; F41.9 Anxiety disorder, unspecified; K21.9 Gastro-esophageal reflux disease without esophagitis; I10 Essential (primary) hypertension; Z88.5 Allergy status to narcotic agent; Z88.8 Allergy status to other drugs, medicaments and biological substances; W22.03XA Walked into furniture, initial encounter; Y93.89 Activity, other specified; Y92.89 Other specified places as the place of occurrence of the external cause; Y99.8 Other external cause status

== ENCOUNTER 2019-02-18 19:23 | Inpatient (IN) | payer OTHER ==
[~2019-02-18] VITALS: Ht 177.8 cm; Wt 83.1 kg
[~2019-02-18 19:23] MED LIST changes: +NABUMETONE 750750 M1 PO
[2019-02-18 19:27] VITALS: BP 193/100
[2019-02-18 19:46] LABS: ABSOLUTE BASOPHILS 0.1 thou/uL (0.0-0.2); ABSOLUTE EOSINOPHILS 0.2 thou/uL (0.0-0.7); ABSOLUTE LYMPHOCYTES 2.4 thou/uL (0.8-5.3); ABSOLUTE MONOCYTES 0.7 thou/uL (0.0-1.2); ABSOLUTE NEUTROPHILS 6.6 thou/uL (1.6-8.1); BASOPHILS 0.6 %; EOSINOPHILS 1.7 %; HEMATOCRIT 39.7 % (42.0-52.0); HEMOGLOBIN 12.9 gm/dL (14.0-18.0); LYMPHOCYTES 24.1 %; MCHC 32.4 g/dL (28.0-37.0); MONOCYTES 7.3 %; MPV 7.4 fl. (7.2-11.1); NUCLEATED RBCS 0 /100WBC; PLATELET COUNT* 260 thou/uL (150-400); POLYS 66.3 %; RBC 4.96 mil/uL (4.50-6.00); RDW-CV 15.3 % (10.5-14.5)
[2019-02-18 19:53] LABS: ANION GAP 11 mmol/L (7-16); BUN 16 mg/dL (7-18); CALCIUM 8.6 mg/dL (8.5-10.1); CHLORIDE 106 mmol/L (98-107); CO2 27 mmol/L (21-32); CREATININE 1.1 mg/dL (0.6-1.3); GLUCOSE 126 mg/dL (70-99); POTASSIUM 3.6 mmol/L (3.5-5.1); SODIUM 144 mmol/L (136-145)
[2019-02-18 19:54] LABS: APTT 25.1 Seconds (25.0-31.3); PROTIME 10.7 Seconds (9.20-11.50)
[2019-02-18 20:03] LABS: ALBUMIN 3.7 g/dL (3.4-5.0); ALKALINE PHOSPHATASE 118 U/L (46-116); SGOT 20 U/L (15-37); SGPT 36 U/L (30-65); TOTAL BILIRUBIN 0.3 mg/dL (<0.1-1.0); TOTAL PROTEIN 7.6 g/dL (6.4-8.2); TROPONIN-I LEVEL <0.06 ng/mL (<0.06)
[2019-02-18 23:51] VITALS: BP 177/93
[2019-02-19] VITALS (8 sets, daily range): BP systolic 115–174; BP diastolic 51–85
[2019-02-19] MEDS ORDERED: PRILOSEC OTC20 MG PO (00:20)
--- NOTE | 2019-02-19 04:59 | NUR ---
Received report and assumed care of patient from ED approximately 2345. monitoring analyst in place tracing SR. Elevated BP reported to physician. Orders received to start patient's home BP medication. Administered per orders and improvement noted in BP. VSS. Patient's pain treated with relaxation and medication per mar. Patient sleeping at this time. NPO for cardiology consult today. Call light within reach
--- NOTE | 2019-02-19 09:41 | NUR ---
ASSUMED CARE OF PT AROUND 0730 THIS AM. REFER TO ASSESSMENT. PT NPO FOR CARDIOLOGY CONSULT. BLOOD PRESSURE WNL D/T RESTARTING HOME HTN MEDS ON PREVIOUS SHIFT. NO OTHER CONCERNS AT THIS TIME. CLWR. WCTM.
--- NOTE | 2019-02-19 11:35 | EKG ---
[place] [address] ELECTROCARDIOGRAM REPORT Name: LUIS SCHREIBER Room: [address] ADM IN M.R.#: [id number] Admission: 02/18/19 Attend Phys: Dolores Guerra Discharge: Date of : 59 Report #: [id number] THIS REPORT FOR: //name// [facility] ED Test Date: 2019-02-18 Test Time: 19:26:09 Pat Name: LUIS CANDIE Department: Room: [facility] Gender: M Interventional Nurse: MR : 1955 Requested By: Erin Hernandez Order Number: [id number] MD: Jose Hatch Measurements Intervals [place] Rate: 58 P: 47 AK: 112 QRS: 30 QRSD: 100 T: 27 QT: 427 QTc: 420 Interpretive Statements Sinus rhythm Borderline short [place] interval Probable left atrial enlargement Compared to ECG 11/06/2018 21:30:12 No significant changes Electronically Signed On 02-19-2019 11:35:24 CDT by Jose Hatch [email or web address] <ELECTRONICALLY SIGNED> By: Jose Hacth MD, [facility] 02/19/19 1135 192 25 Jose Hatch MD, [facility] /EPI
--- NOTE | 2019-02-19 14:15 | EXE ---
[place] [address] STRESS ECHOCARDIOGRAM Name: LUIS SCHREIBER Room: [address] M.R.#: [id number] Admission: 02/18/19 Attend Phys: Loraine Morales Discharge: Date of : 59 Date of Service: 02/19/19 1414 Report #: [id number] THIS REPORT FOR: //name// APPROVED REPORT Study performed: 02/19/2019 13:07:16 Exam: Stress Echocardiogram Indication: Chest pain Patient Location: In-Patient Stress Nurse: Sada Richardson RN Room #: [facility] Supervising Physician: Jose Hatch MD Status: routine Ht: 5 ft 10 in HR: 71 bpm BP: 142/93 mmHg Rhythm: NSR Medical History Medications: HCTZ Allergies: Codeine, tramadol Cardiac Risk Factors: HTN, FHX of CAD, Age Procedure The patient underwent an Exercise Stress Test using the Alex Protocol. Blood pressure, heart rate, and EKG were monitored. An Echocardiogram was performed by biomedical engineering technician in four stages in quad fashion. At peak stress, four selected images were obtained and placed side by side with resting images for comparison. Stress Test Details Stress Test: Exercise stress testing was performed using a Alex protocol. HR Resting HR: 71 bpm Max Heart Rate (APMHR): 159 bpm Max HR Achieved: 143 bpm Target HR (85% APMHR): 135 bpm % of APMHR: 89 Recovery HR: 69 bpm HR response to stress: Normal HR response to stress BP Resting BP: 142/93 mmHg Max BP: 211/96 mmHg Recovery BP: 141/[place] [address] STRESS ECHOCARDIOGRAM Name: LUIS SCHREIBER Room: [address]#: [id number] Admission: 02/18/19 Attend Phys: Loraine Morales Discharge: Date of : 59 Date of Service: 02/19/19 1414 Report #: [id number] BP response to stress: Normal blood pressure response to stress. ECG Clinical Reason for Termination: Maximal effort Exercise duration: 5 min 19 sec Highest Stage Achieved: Stage 2: 2.5 mph at 12% grade. Exercise capacity: 7.05 METs Pre-Stress Echo The resting Echocardiogram showed normal left ventricular contractility with an estimated Ejection Fraction of about 55-60%. Post-Stress Echo LV chamber size decreases, LV ejection fraction increases, no new wall motion abnormalities are seen. Conclusion Clinical Response: Non-ischemic Exercise Capacity: Below Average Stress ECG Response: Non-ischemic Stress Echo Images: Non-ischemic Negative stress echo for ischemia at level of exercise achieved. Poor functional capacity. Other Information Study Quality: Good <Conclusion> Negative stress echo for ischemia at level of exercise achieved. Poor functional capacity. <ELECTRONICALLY SIGNED> By: Jose Hatch MD, FACC 02/19/19 1414 1414 1414 Jose Hatch MD, FACC /INF
--- NOTE | 2019-02-19 15:04 | NUR ---
Pt is A&O. Resides at home with his . Active and independent. No DME. No hx of HH or SNF. Stress test today was negative. Goal is home at mt. No needs anticipated. Following.
--- NOTE | 2019-02-19 15:13 | NUR ---
PT PROGRESSING TOWARDS GOALS THIS SHIFT. VSS. STRESS TEST NEGATIVE. OK FOR DC PER CARDIOLOGY. DISCUSSED WITH HIMS. ANTICIPATE DC HOME TOMORROW. PRN PAIN MEDICATION FOR HEADACHE EFFECTIVE. NO OTHER CONCERNS AT THIS TIME. CLWR. WCTM.
[2019-02-20 03:49] VITALS: BP 132/69
--- NOTE | 2019-02-20 05:47 | NUR ---
Patient partially progressing towards goals: Neck pain relieved with prn Morphine and ice pack. Patient states Toradol does not work at all. Blood pressure stable this shift. Patient has shortness of air with exertion. No desaturations noted on room air. Patient continues to receive breathing tx with slight relief. Call light within reach
[2019-02-20 08:00] VITALS: BP 138/68
[2019-02-20 11:54] VITALS: BP 133/84
--- NOTE | 2019-02-20 13:08 | NUR ---
DISCHARGE ORDERS RECEIVED. SLEEVE WHEEL MAKER AND SALINE LOCK DC'D. UP AD DAMION IN ROOM, GAIT STEADY. CONTINUES TO REPORT HAVING NECK DISCOMFORT AND DISCOMFORT WHEN TAKING DEEP BREATH, BUT REPORTING PARTIAL RELIEF FROM PAIN MEDICAITON - DR ZAVALETA AWARE. EDUCATED ON DISCHARGE INSTRUCTIONS, VERABALIZED UNDERSTANDING. ALL PERSONAL BELONGINGS COLLECTED BY PATIENT AND FAMILY FOR DISCHARGE. GIVEN WRITTEN DISCHARGE INSTRUCITONS FOR REINFORCEMENT TEACHING.
[2019-02-20 13:15] VITALS: BP 133/84
[2019-02-20 13:34] VITALS: BP 133/84
--- NOTE | 2019-02-20 13:40 | NUR ---
CM provided pt w/resource packet with info re: Medicaid application process, as pt was getting ready to d/c today to home w/spouse. Also CM scheduled pt f/u appointment along w/pt for March 20 @ 7030 @ [facility] in [place]. CM to remain available to assist as needed.
[2019-02-20] MEDS ORDERED: FLOVENT HFA 4444 MCG INH (13:42)
[2019-02-20] MEDS ORDERED: PROAIR RESPICL90 MCG PO (13:47)
== END 2019-02-20 15:05 | disposition home or self-care (01) | DRG 305 ==
LOC: M.ERS 19:23 → M.2W 23:04 → M.TBA-ER 23:04 → M.2W 23:41
PROVIDERS: Personal Emergency Response Attendant; ADMIT Internal Medicine
DX: I16.0 Hypertensive urgency (principal); G89.29 Other chronic pain; M54.2 Cervicalgia; M54.9 Dorsalgia, unspecified; F41.9 Anxiety disorder, unspecified; K21.9 Gastro-esophageal reflux disease without esophagitis; Z88.6 Allergy status to analgesic agent; K44.9 Diaphragmatic hernia without obstruction or gangrene; G31.89 Other specified degenerative diseases of nervous system; I20.9 Angina pectoris, unspecified; J43.9 Emphysema, unspecified; Z88.8 Allergy status to other drugs, medicaments and biological substances; I10 Essential (primary) hypertension; Z79.82 Long term (current) use of aspirin; Z79.899 Other long term (current) drug therapy; Q25.49 Other congenital malformations of aorta

== ENCOUNTER 2019-04-07 21:16 | Emergency (ER) | payer OTHER ==
[~2019-04-07] VITALS: Ht 175.3 cm; Wt 86.2 kg
[~2019-04-07 21:16] MED LIST changes: +FLOVENT HFA 4444 MCG INH; +PROAIR RESPICL90 MCG PO
[2019-04-07 21:45] LABS: ABSOLUTE BASOPHILS 0.1 thou/uL (0.0-0.2); ABSOLUTE EOSINOPHILS 0.1 thou/uL (0.0-0.7); ABSOLUTE LYMPHOCYTES 2.7 thou/uL (0.8-5.3); ABSOLUTE MONOCYTES 0.7 thou/uL (0.0-1.2); ABSOLUTE NEUTROPHILS 6.4 thou/uL (1.6-8.1); BASOPHILS 0.9 %; EOSINOPHILS 0.5 %; HEMATOCRIT 42.8 % (42.0-52.0); HEMOGLOBIN 14.2 gm/dL (14.0-18.0); LYMPHOCYTES 27.5 %; MCH 25.9 pg (26.0-34.0); MCHC 33.1 g/dL (28.0-37.0); MCV 78.4 fL (80.0-100.0); MONOCYTES 6.8 %; MPV 7.6 fl. (7.2-11.1); NUCLEATED RBCS 0 /100WBC; PLATELET COUNT* 300 thou/uL (150-400); POLYS 64.3 %; RBC 5.46 mil/uL (4.50-6.00); RDW-CV 15.8 % (10.5-14.5); WBC 9.9 thou/uL (4.0-11.0)
[2019-04-07 21:53] LABS: URINE BILIRUBIN NEGATIVE (Negative); URINE BLOOD NEGATIVE (Negative); URINE CLARITY CLEAR; URINE COLOR YELLOW; URINE GLUCOSE-RANDOM NEGATIVE (Negative); URINE KETONES NEGATIVE (Negative); URINE LEUKOCYTES-REFLEX NEGATIVE (Negative); URINE NITRITE-REFLEX NEGATIVE (Negative); URINE PROTEIN NEGATIVE (Negative); URINE SPECIFIC GRAVITY >= 1.030 (1.005-1.030); URINE UROBILINOGEN 0.2 E.U./dl (0.2-1.0)
[2019-04-07 22:03] LABS: ANION GAP 10 mmol/L (7-16); BUN 12 mg/dL (7-18); CALCIUM 9.3 mg/dL (8.5-10.1); CHLORIDE 101 mmol/L (98-107); CO2 29 mmol/L (21-32); CREATININE 1.1 mg/dL (0.6-1.3); GLUCOSE 107 mg/dL (70-99); POTASSIUM 3.2 mmol/L (3.5-5.1); SODIUM 140 mmol/L (136-145)
[2019-04-07 22:13] LABS: ALBUMIN 4.1 g/dL (3.4-5.0); ALKALINE PHOSPHATASE 129 U/L (46-116); LIPASE 132 U/L (73-393); SGOT 23 U/L (15-37); SGPT 39 U/L (30-65); TOTAL BILIRUBIN 0.5 mg/dL (<0.1-1.0); TOTAL PROTEIN 8.4 g/dL (6.4-8.2); TROPONIN-I LEVEL <0.06 ng/mL (<0.06)
[2019-04-07] MEDS ORDERED: NORCO 5-325 TA1 EAC1 PO (23:50)
[2019-04-07] MEDS ORDERED: ZOFRAN ODT4 MG DISSOLVE (23:50)
[2019-04-08 00:15] VITALS: BP 159/91
--- NOTE | 2019-04-08 12:03 | EKG ---
[place] [address] ELECTROCARDIOGRAM REPORT Name: LUIS SCHREIBER [id number] Admission: 04/07/19 Attend Phys: Discharge: 04/08/19 Date of : 59 Report #: [id number] THIS REPORT FOR: //name// [facility] ED Test Date: 2019-04-07 Test Time: 21:38:40 Pat Name: LUIS SCHREIBER Department: Room: Gender: M Annealing Furnace Operator: ZOYA : 1955 Requested By: Anthony Mullen Order Number: [id number] MD: Telly Emery Measurements Intervals [place] Rate: 86 P: 52 [place]: 109 QRS: 12 QRSD: 91 T: 49 QT: 382 QTc: 457 Interpretive Statements Sinus rhythm Short [place] interval Probable left atrial enlargement RSR' in V1 or V2, right VCD or RVH Compared to ECG 02/18/2019 19:26:09 RSR' in V1 or V2 now present Electronically Signed On 04-08-2019 12:02:50 CDT by Telly Emery [email or web address] <ELECTRONICALLY SIGNED> By: Telly Emery MD, FACC 04/08/19 1202 2138 Telly Emery MD, [facility] /EPI
== END 2019-04-08 00:16 | disposition home or self-care (01) ==
LOC: M.ERS 21:16
PROVIDERS: Emergency Medicine Emergency Medical Services
DX: R10.84 Generalized abdominal pain (principal); K59.00 Constipation, unspecified; F41.9 Anxiety disorder, unspecified; K21.9 Gastro-esophageal reflux disease without esophagitis; G89.29 Other chronic pain; R11.0 Nausea; Z88.5 Allergy status to narcotic agent

== ENCOUNTER 2019-05-01 21:30 | Emergency (ER) | payer OTHER ==
[~2019-05-01] VITALS: Ht 177.8 cm; Wt 83.9 kg
[2019-05-01] MEDS ORDERED: NORCO 5-325 TA1 EAC1 PO (21:57)
[2019-05-01] MEDS ORDERED: BENTYL 10 MG CA10 M1 PO (21:57)
[2019-05-01 22:35] VITALS: BP 144/81
== END 2019-05-01 22:35 | disposition home or self-care (01) ==
LOC: M.ERS 21:30
DX: R10.84 Generalized abdominal pain (principal); I10 Essential (primary) hypertension; K21.9 Gastro-esophageal reflux disease without esophagitis; F41.9 Anxiety disorder, unspecified; G89.29 Other chronic pain; Z88.5 Allergy status to narcotic agent; Z88.6 Allergy status to analgesic agent

== ENCOUNTER 2019-05-25 18:07 | Emergency (ER) | payer OTHER ==
[~2019-05-25] VITALS: Ht 177.8 cm; Wt 86.2 kg
[~2019-05-25 18:07] MED LIST changes: +BENTYL 10 MG CA10 M1 PO
[2019-05-25 18:39] LABS: ABSOLUTE BASOPHILS 0.1 thou/uL (0.0-0.2); ABSOLUTE EOSINOPHILS 0.1 thou/uL (0.0-0.7); ABSOLUTE LYMPHOCYTES 2.4 thou/uL (0.8-5.3); ABSOLUTE NEUTROPHILS 8.4 thou/uL (1.6-8.1); BASOPHILS 0.6 %; EOSINOPHILS 0.6 %; HEMOGLOBIN 13.6 gm/dL (14.0-18.0); LYMPHOCYTES 20.4 %; MCH 25.5 pg (26.0-34.0); MCHC 32.5 g/dL (28.0-37.0); MCV 78.5 fL (80.0-100.0); MONOCYTES 8.3 %; MPV 7.5 fl. (7.2-11.1); NUCLEATED RBCS 0 /100WBC; PLATELET COUNT* 312 thou/uL (150-400); POLYS 70.1 %; RBC 5.34 mil/uL (4.50-6.00)
[2019-05-25 18:47] LABS: CALCIUM 8.9 mg/dL (8.5-10.1); CREATININE 1.1 mg/dL (0.6-1.3); POTASSIUM 3.2 mmol/L (3.5-5.1)
[2019-05-25 18:51] LABS: ALBUMIN 3.7 g/dL (3.4-5.0); TOTAL BILIRUBIN 0.4 mg/dL (<0.1-1.0)
[2019-05-25 19:22] LABS: URINE BILIRUBIN NEGATIVE (Negative); URINE BLOOD NEGATIVE (Negative); URINE CLARITY CLEAR; URINE COLOR YELLOW; URINE GLUCOSE-RANDOM NEGATIVE (Negative); URINE KETONES NEGATIVE (Negative); URINE LEUKOCYTES-REFLEX NEGATIVE (Negative); URINE NITRITE-REFLEX NEGATIVE (Negative); URINE PROTEIN NEGATIVE (Negative); URINE UROBILINOGEN 0.2 E.U./dl (0.2-1.0)
[2019-05-25] MEDS ORDERED: NORCO 5-325 TA1 EAC1 PO (20:15)
[2019-05-25] MEDS ORDERED: FLAGYL500 M1 PO (20:15)
[2019-05-25] MEDS ORDERED: CIPRO500 MG PO (20:15)
[2019-05-25] MEDS ORDERED: ONDANSETRON HCL4 M2 PO (20:15)
[2019-05-25 20:45] VITALS: BP 122/94
== END 2019-05-25 20:46 | disposition home or self-care (01) ==
LOC: M.ERS 18:07
PROVIDERS: Physician Assistant
DX: K42.9 Umbilical hernia without obstruction or gangrene (principal); N28.1 Cyst of kidney, acquired; N32.89 Other specified disorders of bladder; R11.2 Nausea with vomiting, unspecified; G89.29 Other chronic pain; I10 Essential (primary) hypertension; K21.9 Gastro-esophageal reflux disease without esophagitis; F41.9 Anxiety disorder, unspecified; Z88.5 Allergy status to narcotic agent; Z88.6 Allergy status to analgesic agent

== ENCOUNTER 2019-07-30 16:35 | Emergency (ER) | payer OTHER ==
[~2019-07-30] VITALS: Ht 177.8 cm; Wt 86.2 kg
[~2019-07-30 16:35] MED LIST changes: +CIPRO500 MG PO; +FLAGYL500 M1 PO; +ONDANSETRON HCL4 M2 PO
[2019-07-30 16:45] VITALS: BP 141/90
[2019-07-30] MEDS ORDERED: PREDNISONE 10 M10 MG PO (17:10)
[2019-07-30] MEDS ORDERED: AUGMENTIN 875-1 EACH PO (17:10)
[2019-07-30] MEDS ORDERED: FLONASE ALLERG9.9 ML NASAL (17:10)
== END 2019-07-30 17:20 | disposition home or self-care (01) ==
LOC: M.ERS 16:35
DX: J32.1 Chronic frontal sinusitis (principal); J32.2 Chronic ethmoidal sinusitis; G89.29 Other chronic pain; F41.9 Anxiety disorder, unspecified; K21.9 Gastro-esophageal reflux disease without esophagitis; I10 Essential (primary) hypertension

== ENCOUNTER 2020-03-26 22:10 | Observation (INO) | payer OTHER ==
[~2020-03-26] VITALS: Ht 177.8 cm; Wt 85.8 kg
--- NOTE | ~2020-03-26 | CON ---
[address] [address] CONSULTATION Name: CANDIELUIS Room: [address] M.R.#: [id number] Admission: 03/27/20 Attend Phys: Candido Gilliam MD Discharge: Date of : 59 Report #: [id number] THIS REPORT FOR: //name// cc: VÍCTOR Cook family physician/PCP VÍCTOR Joyce family physician/PCP ~ THIS REPORT FOR: //name// CC: [facility] physician/PCP Candido Gilliam DATE OF SERVICE: 03/27/2020 INDICATION: Chest pain. HISTORY OF PRESENT ILLNESS: The patient is a 64-year-old gentleman who presents to the hospital after a prolonged episode of midsternal chest pressure and shortness of breath that lasted approximately an hour yesterday after walking his dog. The patient was given morphine and nitroglycerin in the Emergency Room ultimately with relief of his discomfort. EKG shows sinus rhythm without acute ST or T-wave abnormality. Cardiac enzymes are negative x 3 sets. The patient had a stress echocardiogram a little over a year ago for similar complaints that was unremarkable. 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 There is no history of myocardial infarction or stroke. The patient has a longstanding history of gastroesophageal reflux for which he uses proton pump inhibitor. The patient denied any radiation of the discomfort. There was no associated diaphoresis, but some shortness of breath. There were no relieving factors. Exacerbating factors are activity. The patient was noted to be fairly hypertensive on admission to the hospital. PAST MEDICAL HISTORY: 1. Hypertension. 2. Hyperlipidemia. 3. Gastroesophageal reflux. 4. Hiatal hernia. 5. Chronic neck pain and back pain. SOCIAL HISTORY: The patient quit smoking over a year ago. He does not use alcohol. The patient's family provides the history that he uses morphine and other narcotics on a daily basis. REVIEW OF SYSTEMS: A 14-point review of systems as per HPI, [place] [address] CONSULTATION Name: LUIS SCHREIBER Room: [address] M.R.#: [id number] Admission: 03/27/20 Attend Phys: Candido Gilliam MD Discharge: Date of : 59 Report #: [id number] unremarkable. HOME MEDICATIONS: Lisinopril/hydrochlorothiazide 20/25 one tablet daily and Paxil 10 mg daily. ALLERGIES: CODEINE AND TRAMADOL. PHYSICAL EXAMINATION: VITAL SIGNS: Blood pressure presently 168/88 and pulse 74. GENERAL: This is a pleasant gentleman in no distress. Mood and affect appropriate. HEENT: Extraocular muscles are intact. Mucous membranes are moist. NECK: Shows no jugular venous distention. There are no carotid bruits. CHEST: Reveals clear lung paige without wheezes, rales or rhonchi. CARDIOVASCULAR: Reveals a regular rhythm without gallop or murmur. ABDOMEN: Reveals normal bowel sounds. The abdomen is soft and nontender. EXTREMITIES: Shows no edema. Peripheral pulses 2+ and easily palpable. SKIN: Dry. LABORATORY DATA: A 12-lead EKG shows sinus rhythm with short IA interval. There are subtle Q-waves inferiorly. There are no acute ST or T-wave abnormalities noted. Cardiac enzymes are negative x 3 sets. Chest x-ray shows no acute cardiopulmonary abnormality. IMPRESSION AND RECOMMENDATIONS: 1. Chest pain with some features to suggest possible angina. The patient has risk factors including atherosclerosis, hypertension and hyperlipidemia. We will proceed with noninvasive stress testing. Further intervention will be pending the results of that study. 2. Hypertension. We will adjust antihypertensives. The patient would likely benefit from low dose beta enrrique. 3. Hyperlipidemia. Start atorvastatin 40 mg daily. 4. Hypertensive emergency, improved with blood pressure treatment. Symptoms resolved. 5. Narcotic abuse. We will discuss possible outpatient treatment options with the patient in a.m. By: 1012 1025Andrzej Dyson MD, FACC /nt
[~2020-03-26 22:10] MED LIST changes: +AUGMENTIN 875-1 EACH PO; +FLONASE ALLERG9.9 ML NASAL; +PREDNISONE 10 M10 MG PO
[2020-03-26 22:13] VITALS: BP 212/114
[2020-03-26 22:47] LABS: ABSOLUTE EOSINOPHILS 0.2 thou/uL (0.0-0.7); ABSOLUTE LYMPHOCYTES 3.4 thou/uL (0.8-5.3); ABSOLUTE MONOCYTES 0.7 thou/uL (0.0-1.2); BASOPHILS 0.3 %; EOSINOPHILS 1.5 %; HEMATOCRIT 35.7 % (42.0-52.0); HEMOGLOBIN 11.6 gm/dL (14.0-18.0); LYMPHOCYTES 33.2 %; MCH 23.5 pg (26.0-34.0); MCHC 32.4 g/dL (28.0-37.0); MCV 72.5 fL (80.0-100.0); MONOCYTES 6.7 %; MPV 7.9 fl. (7.2-11.1); NUCLEATED RBCS 0 /100WBC; PLATELET COUNT* 329 thou/uL (150-400); POLYS 58.3 %; RBC 4.92 mil/uL (4.50-6.00); RDW-CV 17.8 % (10.5-14.5); WBC 10.2 thou/uL (4.0-11.0)
[2020-03-26 22:53] LABS: CALCIUM 8.3 mg/dL (8.5-10.1); CREATININE 1.1 mg/dL (0.6-1.3)
[2020-03-26 22:58] LABS: INR 1.1; PROTIME 10.9 Seconds (9.20-11.50)
[2020-03-26 23:03] LABS: ALBUMIN 3.5 g/dL (3.4-5.0); MAGNESIUM 2.2 mg/dL (1.8-2.4); TOTAL BILIRUBIN 0.2 mg/dL (<0.1-1.0); TOTAL PROTEIN 7.3 g/dL (6.4-8.2)
[2020-03-26 23:18] LABS: URINE BILIRUBIN NEGATIVE (Negative); URINE BLOOD NEGATIVE (Negative); URINE CLARITY CLEAR; URINE COLOR YELLOW; URINE GLUCOSE-RANDOM NEGATIVE (Negative); URINE KETONES NEGATIVE (Negative); URINE LEUKOCYTES-REFLEX NEGATIVE (Negative); URINE NITRITE-REFLEX NEGATIVE (Negative); URINE PROTEIN NEGATIVE (Negative); URINE SPECIFIC GRAVITY 1.015 (1.005-1.030); URINE UROBILINOGEN 0.2 E.U./dl (0.2-1.0)
[2020-03-27] VITALS (7 sets, daily range): BP systolic 130–169; BP diastolic 64–88
[2020-03-27 12:11] LABS: ALBUMIN 3.4 g/dL (3.4-5.0); ANION GAP 6 mmol/L (7-16); BUN 12 mg/dL (7-18); CALCIUM 8.4 mg/dL (8.5-10.1); CHLORIDE 105 mmol/L (98-107); CHOLESTEROL 149 mg/dL (<200); CO2 30 mmol/L (21-32); CREATININE 0.9 mg/dL (0.6-1.3); GLUCOSE 107 mg/dL (70-99); HDL CHOLESTEROL 38 mg/dL (>40); LDL CHOLESTEROL 93 mg/dL (<100); MAGNESIUM 2.1 mg/dL (1.8-2.4); PHOSPHORUS* 3.5 mg/dL (2.5-4.9); POTASSIUM 3.5 mmol/L (3.5-5.1); SODIUM 141 mmol/L (136-145); TC:HDL 3.9 Ratio (Not establshd); TRIGLYCERIDE 93 mg/dL (<150); VLDL 19 mg/dL (<40)
[2020-03-27 12:15] LABS: SERUM ASSESSMENT Clear
[2020-03-27 12:37] LABS: AMP/METHAMP Negative (Negative); BARBITURATES Negative (Negative); BENZODIAZEPINES Negative (Negative); COCAINE Negative (Negative); METHADONE Negative (Negative); OPIATES POSITIVE (Negative); PCP Negative (Negative); THC Negative (Negative)
--- NOTE | 2020-03-27 12:40 | EKG ---
[place] [address] ELECTROCARDIOGRAM REPORT Name: LUIS SCHREIBER Room: [address] M.R.#: [id number] Admission: 03/27/20 Attend Phys: Candido Gilliam, Discharge: Date of : 59 Date of Service: 03/26/20 2214 Report #: [id number] THIS REPORT FOR: //name// [facility] ED Test Date: 2020-03-26 Test Time: 22:14:33 Pat Name: LUIS SCHREIBER Department: Room: [facility] Gender: M Life Scientists: PILY : 1955 Requested By: Latonya Ludwig Order Number: [id number] MD: Andrzej Dyson Measurements Intervals [place] Rate: 114 P: 53 [place]: 180 QRS: 54 QRSD: 102 T: 2 QT: 336 QTc: 463 Interpretive Statements Sinus tachycardia RSR' in V1 or V2, right VCD or RVH Repol abnrm, consider global ischemia (LM/MVD) Compared to ECG 04/07/2019 21:38:40 Early repolarization now present Possible ischemia now present Sinus rhythm no longer present Short [place] interval no longer present Electronically Signed On 03-27-2020 12:40:34 CDT by Andrzej Dyson [email or web address] <ELECTRONICALLY SIGNED> By: Andrzej Dyson MD, [facility] 03/27/20 1240 13 221 Andrzej Dyson MD, [facility] /EPI
[2020-03-28] VITALS: BP 147/69
[2020-03-28 04:00] VITALS: BP 136/59
[2020-03-28 05:27] LABS: CALCIUM 8.1 mg/dL (8.5-10.1); MAGNESIUM 2.3 mg/dL (1.8-2.4); PHOSPHORUS* 3.7 mg/dL (2.5-4.9); POTASSIUM 3.8 mmol/L (3.5-5.1)
[2020-03-28 08:00] VITALS: BP 159/87
--- NOTE | 2020-03-28 10:56 | EKG ---
[place] [address] ELECTROCARDIOGRAM REPORT Name: LUIS SCHREIBER Room: [address] M.R.#: [id number] Admission: 03/27/20 Attend Phys: Candido Gilliam, Discharge: Date of : 59 Date of Service: 03/26/20 2341 Report #: [id number] THIS REPORT FOR: //name// [facility] ED Test Date: 2020-03-26 Test Time: 23:41:59 Pat Name: LUIS SCHREIBER Department: Room: [address] Gender: M Bridge Gang Worker: GAVINO : 1955 Requested By: Latonya Ludwig Order Number: [id number] Camila MD: Telly Emery Measurements Intervals [place] Rate: 72 P: 66 [place]: 114 QRS: 45 QRSD: 99 T: 20 QT: 407 QTc: 446 Interpretive Statements Sinus rhythm Borderline short [place] interval RSR' in V1 or V2, right VCD or RVH Compared to ECG 03/26/2020 22:14:33 Sinus tachycardia no longer present Possible ischemia no longer present Electronically Signed On 03-28-2020 10:56:08 CDT by Telly Emery [email or web address] <ELECTRONICALLY SIGNED> By: Telly Emery MD, FACC 03/28/20 1056 2341 2341 Telly Emery MD, FAC /EPI
[2020-03-28 12:00] VITALS: BP 141/87
[2020-03-28] MEDS ORDERED: LIPITOR 40 MG T40 M1 PO (13:54)
[2020-03-28 17:04] VITALS: BP 141/87
--- NOTE | 2020-03-28 17:39 | CARDNUC ---
[place] [address] CARDIAC NUCLEAR IMAGING REPORT Name: CANDIELUIS ABAD Room: [address] M.R.#: [id number] Admission: 03/27/20 Attend Phys: Candido Gilliam, Discharge: Date of : 59 Date of Service: 03/28/20 1739 Report #: [id number] THIS REPORT FOR: cc: FAM - No family physician/PCP FAM - No family physician/PCP Andrzej Dyson MD [facility] ~ APPROVED REPORT Imaging Protocol: Stress Tc-99m/Rest Tc-99m 1 day Study performed: 03/27/2020 10:15:00 Indication: Chest pain, dyspnea. Patient Location: In-Patient Room #: 209 Stress Tech: Patsy Fu Stress Nurse: Yvonne Paez RN Ht: 5 ft 10 in Wt: 190 lbs BSA: 2.04 m2 BMI: 27.25 Medical History Medical History: Angina, dyspnea, atherosclerosis, narcotic abuse, HTN, HLD, past smoker. Medications: Coreg, Atorvastatin, ( Home meds include Lisinopril-HCTZ). Allergies: Codeine, Tramadol. Cardiac Risk Factors: Age, HTN, Hyperlipidemia, SOB, Past Smoker. Previous Cardiac Procedures: None Pretest Chest Pain Characteristics: No chest pain Exercise History: Indeterminate Physical Disabilities: None noted. Meds Held (24 hrs): Coreg. Resting Data Rest SPECT myocardial perfusion imaging was performed in supine position 30 minutes following the intravenous injection of 11.2 mCi of Tc-99m Sestamibi. Time of rest injection: 13:00 The images were gated to evaluate regional wall motion and calculate left ventricular ejection fraction. Administration Route: IV Administration Site: [place] [address] CARDIAC NUCLEAR IMAGING REPORT Name: LUIS SCHREIBER Room: [address]#: [id number] Admission: 03/27/20 Attend Phys: Candido Gilliam, Discharge: Date of : 59 Date of Service: 03/28/20 1739 Report #: [id number] Exercise Stress At peak stress, the patient was injected intravenously with 30.0mCi of Tc-99m Sestamibi. Time of stress injection: 15:00 Administration Route: IV Administration Site: Right Arm Heart Rate at time of stress injection: 148 bpm. Gated Stress SPECT was performed 40 minutes after stress injection. The images were gated to evaluate regional wall motion and calculate left ventricular ejection fraction. Stress Test Details Stress Test: Exercise stress testing was performed using a Alex protocol. HR Max Heart Rate (APMHR): 158 bpm Resting HR: 72 bpm Target HR (85% APMHR): 134 bpm Max HR Achieved: 148 bpm % of APMHR: 93 Recovery HR: 94 bpm BP Resting BP: 159/104 mmHg Max BP: 240/104 mmHg Recovery BP: 192/111 mmHg ECG Resting ECG: Sinus Rhythm Stress ECG: Sinus Tachycardia ST Change: None Arrhythmia: None Recovery ECG: Sinus Rhythm Recovery ST Change: None Recovery Arrhythmia: None Clinical Reason for Termination: Completed protocol, Maximal effort, Patient Request Stress Symptoms: Dyspnea, fatigue, HTN. Exercise duration: 7 min 16 sec Exercise capacity: 7.05 METs Overall Exercise Capacity for Age: Reduced The patient tolerated exercise per standard Alex protocol without significant cardiac symptoms. [place] [address] CARDIAC NUCLEAR IMAGING REPORT Name: LUIS SCHREIBER Room: [address]#: [id number] Admission: 03/27/20 Attend Phys: Candido Gilliam, Discharge: Date of : 59 Date of Service: 03/28/20 1739 Report #: [id number] A 64 year old male inpatient presented for a Treadmill Nuclear Stress Test r/t chest pain and dyspnea. Treadmill tolerated to stage 2. Recovery extended with asymptomatic hypertension. Patient stated he felt good. Dr. Emery notified regarding continued HTN. Patient was escorted by staff via wheelchair to Nuclear Medicine for imaging. Patients floor nurse notified of HTN and requested to administer beta enrrique to patient promptly. Stress ECG Conclusion The baseline twelve-lead EKG shows sinus rhythm without significant ST segment or T wave abnormality. EKGs obtained during and post exercise show sinus rhythm and sinus tachycardia with no significant ST segment or T wave changes when compared to baseline. There were no stress-induced arrhythmias. Study Quality Study: Good Artifact: No artifact Study Data At rest, the left ventricular ejection fraction was 70%.. Post stress, the left ventricular ejection was 68%.. TID = 0.86. Perfusion Perfusion images obtained at rest and post exercise stress showed uniform uptake of the radioisotope throughout the myocardium. There were no defects to suggest infarct or ischemia. Wall Motion Normal left ventricular wall motion. Nuclear Conclusion ECG Findings: negative for ischemia Clinical Findings: negative for ischemia Nuclear Findings: negative for ischemia Exercise Capacity: normal Left Ventricular Function: normal Risk Study: low Perfusion study show no defect to suggest infarct or ischemia. Left ventricular systolic function appears normal on gated studies. This is a low risk study. <Conclusion> The baseline twelve-lead EKG shows sinus rhythm without significant ST segment or T wave abnormality. [place]Gs [place] [address] CARDIAC NUCLEAR IMAGING REPORT Name: LUIS SCHREIBER Room: [address] M.R.#: [id number] Admission: 03/27/20 Attend Phys: Candido Gilliam, Discharge: Date of : 59 Date of Service: 03/28/20 1739 Report #: [id number] exercise show sinus rhythm and sinus tachycardia with no significant ST segment or T wave changes when compared to baseline. There were no stress-induced arrhythmias. <ELECTRONICALLY SIGNED> By: Andrzej Dyson MD, [facility] 03/28/20 1739 38 38 Andrzej Dyson MD, FACC /INF
== END 2020-03-28 17:30 | disposition home or self-care (01) ==
LOC: M.ERS 22:10 → M.TBA-ER 03-27 00:26 → M.2W 03-27 00:26
PROVIDERS: Emergency Medicine; Family Medicine; ADMIT Internal Medicine; ATTEND Internal Medicine
DX: R07.89 Other chest pain (principal); I16.0 Hypertensive urgency; M19.90 Unspecified osteoarthritis, unspecified site; F11.20 Opioid dependence, uncomplicated; K21.9 Gastro-esophageal reflux disease without esophagitis; K44.9 Diaphragmatic hernia without obstruction or gangrene; R42 Dizziness and giddiness; M54.2 Cervicalgia; G89.29 Other chronic pain; F41.9 Anxiety disorder, unspecified; Z87.891 Personal history of nicotine dependence; Z91.14 Patient's other noncompliance with medication regimen

== ENCOUNTER 2020-04-23 17:30 | Emergency (ER) | payer OTHER ==
[~2020-04-23] VITALS: Ht 177.8 cm; Wt 86.2 kg
[~2020-04-23 17:30] MED LIST changes: +LIPITOR 40 MG T40 M1 PO
[2020-04-23 18:18] LABS: HEMATOCRIT 39.6 % (42.0-52.0); HEMOGLOBIN 12.7 gm/dL (14.0-18.0); MCH 23.9 pg (26.0-34.0); MCHC 32.1 g/dL (28.0-37.0); MCV 74.5 fL (80.0-100.0); MPV 7.4 fl. (7.2-11.1); NUCLEATED RBCS 0 /100WBC; PLATELET COUNT* 325 thou/uL (150-400); RBC 5.31 mil/uL (4.50-6.00); RDW-CV 19.3 % (10.5-14.5); WBC 10.6 thou/uL (4.0-11.0)
[2020-04-23 18:19] LABS: URINE BILIRUBIN NEGATIVE (Negative); URINE BLOOD NEGATIVE (Negative); URINE CLARITY CLEAR; URINE COLOR YELLOW; URINE GLUCOSE-RANDOM NEGATIVE (Negative); URINE KETONES NEGATIVE (Negative); URINE LEUKOCYTES-REFLEX NEGATIVE (Negative); URINE NITRITE-REFLEX NEGATIVE (Negative); URINE PROTEIN NEGATIVE (Negative); URINE SPECIFIC GRAVITY 1.015 (1.005-1.030); URINE UROBILINOGEN 0.2 E.U./dl (0.2-1.0)
[2020-04-23 18:27] LABS: CALCIUM 9.2 mg/dL (8.5-10.1); CREATININE 0.9 mg/dL (0.6-1.3); POTASSIUM 3.1 mmol/L (3.5-5.1)
[2020-04-23 18:31] LABS: ALBUMIN 3.3 g/dL (3.4-5.0); TOTAL BILIRUBIN 0.1 mg/dL (<0.1-1.0); TOTAL PROTEIN 7.7 g/dL (6.4-8.2)
[2020-04-23 18:49] LABS: ABSOLUTE EOSINOPHILS 0.1 thou/uL (0.0-0.7); ABSOLUTE LYMPHOCYTES 2.7 thou/uL (0.8-5.3); ABSOLUTE NEUTROPHILS 6.9 thou/uL (1.6-8.1); ANISOCYTOSIS 1+; HYPOCHROMASIA 1+; METAMYELOCYTES 2 %; PLATELET ESTIMATE ADEQUATE; POIKILOCYTOSIS 1+
[2020-04-23] MEDS ORDERED: ONDANSETRON ODT4 MG PO (18:53)
[2020-04-23] MEDS ORDERED: POTASSIUM20 PO (18:54)
[2020-04-23 19:47] VITALS: BP 154/90
--- NOTE | 2020-04-25 09:52 | EKG ---
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: [facility] : 1955 Requested By: Crystal Kumar Order Number: [id number] MD: Telly Emery Measurements Intervals [place] Rate: 68 P: 45 CT: 107 QRS: 25 QRSD: 104 T: 26 QT: 428 QTc: 456 Interpretive Statements Sinus rhythm Short CT interval RSR' in V1 or V2, right VCD or RVH Abnormal inferior Q waves Compared to ECG 03/26/2020 23:41:59 no change Electronically Signed On 04-25-2020 9:52:00 CDT by Telly Emery [email or web address] <ELECTRONICALLY SIGNED> By: Telly Emery MD, [facility] 04/25/20 0952 1817 1817 Telly Emery MD, [facility] /EPI
== END 2020-04-23 19:48 | disposition home or self-care (01) ==
LOC: M.ERS 17:30
PROVIDERS: Physician Assistant
DX: R11.2 Nausea with vomiting, unspecified (principal); G89.29 Other chronic pain; K21.9 Gastro-esophageal reflux disease without esophagitis; I10 Essential (primary) hypertension

== ENCOUNTER 2020-05-29 18:00 | Emergency (ER) | payer OTHER ==
[~2020-05-29] VITALS: Ht 177.8 cm; Wt 86.2 kg
[~2020-05-29 18:00] MED LIST changes: +ONDANSETRON ODT4 MG PO; +POTASSIUM20 PO
[2020-05-29] MEDS ORDERED: IBUPROFEN 800800 M1 PO (18:45)
[2020-05-29] MEDS ORDERED: NORCO 5-325 TA1 EAC2 PO (18:45)
[2020-05-29] MEDS ORDERED: PENICILLIN V P500 MG PO (18:45)
[2020-05-29 18:49] VITALS: BP 207/120
--- NOTE | 2020-05-30 17:42 | EKG ---
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[place] : 1955 Requested By: Kourtney Burns Order Number: [id number] MD: Andrzej Dyson Measurements Intervals [place] Rate: 89 P: MD: QRS: 25 QRSD: 102 T: 28 QT: 382 QTc: 465 Interpretive Statements Atrial fibrillation RSR' in V1 or V2, right VCD or RVH Inferior infarct, old, possible Compared to ECG 04/23/2020 18:17:51 Sinus rhythm no longer present Short MD interval no longer present Electronically Signed On 05-30-2020 17:41:48 CDT by Andrzej Dyson [email or web address] <ELECTRONICALLY SIGNED> By: Andrzej Dyson MD, FACC 05/30/20 1741 1809 1809 Andrzej Dyson MD, FACC /EPI
== END 2020-05-29 18:49 | disposition home or self-care (01) ==
LOC: M.ERS 18:00
DX: M25.512 Pain in left shoulder (principal); K04.7 Periapical abscess without sinus; K02.9 Dental caries, unspecified; K21.9 Gastro-esophageal reflux disease without esophagitis; G89.29 Other chronic pain; I10 Essential (primary) hypertension

== ENCOUNTER 2020-08-25 21:38 | Emergency (ER) | payer OTHER ==
[~2020-08-25] VITALS: Ht 172.7 cm; Wt 86.2 kg
[~2020-08-25 21:38] MED LIST changes: +NORCO 5-325 TA1 EAC2 PO
[2020-08-25 22:24] LABS: ABSOLUTE BASOPHILS 0.1 thou/uL (0.0-0.2); ABSOLUTE EOSINOPHILS 0.3 thou/uL (0.0-0.7); ABSOLUTE LYMPHOCYTES 3.5 thou/uL (0.8-5.3); ABSOLUTE MONOCYTES 0.6 thou/uL (0.0-1.2); BASOPHILS 0.8 %; EOSINOPHILS 3.2 %; HEMATOCRIT 37.7 % (42.0-52.0); LYMPHOCYTES 36.9 %; MCH 24.3 pg (26.0-34.0); MCV 75.9 fL (80.0-100.0); MONOCYTES 6.4 %; MPV 7.4 fl. (7.2-11.1); NUCLEATED RBCS 0 /100WBC; PLATELET COUNT* 275 thou/uL (150-400); POLYS 52.7 %; RBC 4.96 mil/uL (4.50-6.00); RDW-CV 16.7 % (10.5-14.5); WBC 9.5 thou/uL (4.0-11.0)
[2020-08-25 22:28] LABS: CALCIUM 8.6 mg/dL (8.5-10.1); CREATININE 1.2 mg/dL (0.6-1.3); POTASSIUM 3.8 mmol/L (3.5-5.1)
[2020-08-25 22:33] LABS: ALBUMIN 3.4 g/dL (3.4-5.0); TOTAL BILIRUBIN 0.2 mg/dL (<0.1-1.0); TOTAL PROTEIN 7.3 g/dL (6.4-8.2)
[2020-08-25] MEDS ORDERED: LISINOPRIL10 MG PO ×2 (23:15→23:26)
[2020-08-25] MEDS ORDERED: HYDROCODON-ACE1 EAC8 PO (23:15)
[2020-08-25 23:33] VITALS: BP 154/74
--- NOTE | 2020-08-26 10:23 | EKG ---
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: [facility] : 1955 Requested By: Latonya Ludwig Order Number: [id number] MD: Telly Emery Measurements Intervals [place] Rate: 76 P: 46 PA: 107 QRS: 19 QRSD: 101 T: 48 QT: 382 QTc: 430 Interpretive Statements Sinus rhythm Short PA interval RSR' in V1 or V2, right VCD or RVH Compared to ECG 05/29/2020 18:09:41 no change Electronically Signed On 08-26-2020 10:23:31 CHIEF DATA OFFICER by Telly Emery [email or web address] <ELECTRONICALLY SIGNED> By: Telly Emery MD, FACC 08/26/20 1023 49 49 Telly Emery MD, [facility] /EPI
== END 2020-08-25 23:34 | disposition home or self-care (01) ==
LOC: M.ERS 21:38
PROVIDERS: Emergency Medicine
DX: M25.512 Pain in left shoulder (principal); I10 Essential (primary) hypertension; K21.9 Gastro-esophageal reflux disease without esophagitis; G89.29 Other chronic pain

== ENCOUNTER 2020-12-11 18:08 | Emergency (ER) | payer OTHER ==
[~2020-12-11] VITALS: Ht 177.8 cm; Wt 86.2 kg
[~2020-12-11 18:08] MED LIST changes: +HYDROCODON-ACE1 EAC8 PO; +LISINOPRIL10 MG PO
[2020-12-11] MEDS ORDERED: NORCO5 PO (18:58)
[2020-12-11] MEDS ORDERED: IBUPROFEN 800800 M1 PO (18:58)
[2020-12-11 19:17] VITALS: BP 145/65
== END 2020-12-11 19:18 | disposition home or self-care (01) ==
LOC: M.ERS 18:08
DX: M25.462 Effusion, left knee (principal); I10 Essential (primary) hypertension; K21.9 Gastro-esophageal reflux disease without esophagitis; G89.29 Other chronic pain

== ENCOUNTER 2020-12-24 17:33 | Emergency (ER) | payer OTHER ==
[~2020-12-24] VITALS: Ht 177.8 cm; Wt 86.2 kg
[~2020-12-24 17:33] MED LIST changes: +NORCO5 PO
[2020-12-24] MEDS ORDERED: HYDROCODON-ACE1 EAC7 PO (17:51)
[2020-12-24] MEDS ORDERED: FLEXERIL PO (17:51)
[2020-12-24 18:07] VITALS: BP 206/94
== END 2020-12-24 18:09 | disposition home or self-care (01) ==
LOC: M.ERS 17:33
DX: M43.6 Torticollis (principal); I10 Essential (primary) hypertension; K21.9 Gastro-esophageal reflux disease without esophagitis; G89.29 Other chronic pain

== ENCOUNTER 2021-01-23 14:27 | Emergency (ER) | payer OTHER ==
[~2021-01-23] VITALS: Ht 177.8 cm; Wt 77.1 kg
[2021-01-23] MEDS ORDERED: NORCO5 PO (15:22)
[2021-01-23] MEDS ORDERED: ZESTRIL10 MG PO (15:22)
[2021-01-23 15:57] VITALS: BP 160/92
== END 2021-01-23 15:58 | disposition home or self-care (01) ==
LOC: M.ERS 14:27
DX: G89.29 Other chronic pain (principal); M25.512 Pain in left shoulder; Z76.0 Encounter for issue of repeat prescription; K21.9 Gastro-esophageal reflux disease without esophagitis; I10 Essential (primary) hypertension

== ENCOUNTER 2021-02-19 11:31 | Emergency (ER) | payer OTHER ==
[~2021-02-19] VITALS: Ht 177.8 cm; Wt 86.2 kg
[~2021-02-19 11:31] MED LIST changes: +ZESTRIL10 MG PO
[2021-02-19] MEDS ORDERED: HYDROCODON-ACE1 EAC7 PO (11:43)
[2021-02-19 11:51] VITALS: BP 189/105
== END 2021-02-19 11:52 | disposition home or self-care (01) ==
LOC: M.ERS 11:31
DX: G89.29 Other chronic pain (principal); I10 Essential (primary) hypertension; K21.9 Gastro-esophageal reflux disease without esophagitis

== ENCOUNTER 2021-03-26 09:19 | Emergency (ER) | payer OTHER ==
[~2021-03-26] VITALS: Ht 177.8 cm; Wt 86.2 kg
[2021-03-26] MEDS ORDERED: HYDROCODON-ACE1 EAC7 PO (09:34)
[2021-03-26 09:41] VITALS: BP 212/100
== END 2021-03-26 09:44 | disposition home or self-care (01) ==
LOC: M.ERS 09:19
DX: G89.29 Other chronic pain (principal); M25.512 Pain in left shoulder; K21.9 Gastro-esophageal reflux disease without esophagitis; I10 Essential (primary) hypertension

== ENCOUNTER 2021-04-20 11:37 | Emergency (ER) | payer OTHER ==
[~2021-04-20] VITALS: Ht 177.8 cm; Wt 86.2 kg
[2021-04-20 13:33] VITALS: BP 123/54
== END 2021-04-20 13:33 | disposition home or self-care (01) ==
LOC: M.ERS 11:37
DX: G89.29 Other chronic pain (principal); M54.2 Cervicalgia; M25.512 Pain in left shoulder; K21.9 Gastro-esophageal reflux disease without esophagitis; I10 Essential (primary) hypertension

== ENCOUNTER 2021-05-23 13:15 | Emergency (ER) | payer OTHER ==
[~2021-05-23] VITALS: Ht 177.8 cm; Wt 86.2 kg
[2021-05-23] MEDS ORDERED: AMOXICILLIN 50500 MG PO (13:28)
[2021-05-23] MEDS ORDERED: HYDROCODON-ACE1 EAC7 PO (13:28)
[2021-05-23 13:42] VITALS: BP 134/54
== END 2021-05-23 13:42 | disposition home or self-care (01) ==
LOC: M.ERS 13:15
DX: K02.9 Dental caries, unspecified (principal); F41.9 Anxiety disorder, unspecified; K21.9 Gastro-esophageal reflux disease without esophagitis; I10 Essential (primary) hypertension; Z79.899 Other long term (current) drug therapy

== ENCOUNTER 2021-06-25 09:26 | Emergency (ER) | payer OTHER ==
[~2021-06-25] VITALS: Ht 177.8 cm; Wt 86.2 kg
[2021-06-25] MEDS ORDERED: HYDROCODON-ACE1 EAC7 PO (10:15)
[2021-06-25 10:17] VITALS: BP 164/88
== END 2021-06-25 10:18 | disposition home or self-care (01) ==
LOC: M.ERS 09:26
DX: G89.29 Other chronic pain (principal); M25.512 Pain in left shoulder; Z76.0 Encounter for issue of repeat prescription; F41.9 Anxiety disorder, unspecified; K21.9 Gastro-esophageal reflux disease without esophagitis; I10 Essential (primary) hypertension; Z79.899 Other long term (current) drug therapy

== ENCOUNTER 2021-08-28 14:08 | Emergency (ER) | payer OTHER ==
[~2021-08-28] VITALS: Ht 177.8 cm; Wt 86.2 kg
[2021-08-28] MEDS ORDERED: HYDROCODON-ACE1 EAC7 PO (14:35)
[2021-08-28 14:39] VITALS: BP 150/82
== END 2021-08-28 14:39 | disposition home or self-care (01) ==
LOC: M.ERS 14:08
DX: G89.29 Other chronic pain (principal); M25.512 Pain in left shoulder; F41.9 Anxiety disorder, unspecified; K21.9 Gastro-esophageal reflux disease without esophagitis; I10 Essential (primary) hypertension

== ENCOUNTER 2021-09-18 12:00 | Emergency (ER) | payer OTHER ==
[~2021-09-18] VITALS: Ht 177.8 cm; Wt 86.2 kg
[2021-09-18] MEDS ORDERED: HYDROCODON-ACE1 EAC7 PO (13:53)
[2021-09-18 13:55] VITALS: BP 175/102
== END 2021-09-18 13:56 | disposition home or self-care (01) ==
LOC: M.ERS 12:00
DX: G89.29 Other chronic pain (principal); M25.512 Pain in left shoulder; F41.9 Anxiety disorder, unspecified; K21.9 Gastro-esophageal reflux disease without esophagitis; I10 Essential (primary) hypertension; Z79.899 Other long term (current) drug therapy

== ENCOUNTER 2021-09-28 13:21 | Emergency (ER) | payer OTHER ==
[~2021-09-28] VITALS: Ht 172.7 cm; Wt 86.2 kg
[2021-09-28 14:28] LABS: ABSOLUTE BASOPHILS 0.1 thou/uL (0.0-0.2); ABSOLUTE EOSINOPHILS 0.3 thou/uL (0.0-0.7); ABSOLUTE LYMPHOCYTES 2.7 thou/uL (0.8-5.3); ABSOLUTE MONOCYTES 1.1 thou/uL (0.0-1.2); ABSOLUTE NEUTROPHILS 7.8 thou/uL (1.6-8.1); BASOPHILS 0.5 %; EOSINOPHILS 2.3 %; HEMATOCRIT 43.2 % (42.0-52.0); LYMPHOCYTES 22.5 %; MCH 26.1 pg (26.0-34.0); MCHC 32.4 g/dL (28.0-37.0); MCV 80.6 fL (80.0-100.0); MONOCYTES 8.9 %; MPV 7.5 fl. (7.2-11.1); NUCLEATED RBCS 0 /100WBC; PLATELET COUNT* 295 thou/uL (150-400); POLYS 65.8 %; RBC 5.36 mil/uL (4.50-6.00); RDW-CV 16.9 % (10.5-14.5); WBC 11.8 thou/uL (4.0-11.0)
--- NOTE | 2021-09-28 14:31 | EKG ---
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: [place] : 1955 Requested By: Crystal Kumar Order Number: [id number] MD: Sukumar Barrios Measurements Intervals [place] Rate: 74 P: 47 ME: 90 QRS: 19 QRSD: 102 T: 76 QT: 419 QTc: 465 Interpretive Statements Sinus rhythm Short ME interval Minor IVCD of the right type persists Abnormal R-wave progression, early transition Inferior infarct, old possible Compared to ECG 08/25/2020 21:50:47 Small inferior Q waves persist Electronically Signed On 09-28-2021 14:31:39 BIN TRIPPER OPERATOR by Sukumar Barrios [email or web address] <ELECTRONICALLY SIGNED> By: Sukumar Barrios MD, [facility] 09/28/21 1431 1410 1410 Sukumar Barrios MD, [facility] /EPI
[2021-09-28 14:34] LABS: CALCIUM 8.9 mg/dL (8.5-10.1); POTASSIUM 3.7 mmol/L (3.5-5.1)
[2021-09-28 14:38] LABS: ALBUMIN 3.7 g/dL (3.4-5.0); TOTAL BILIRUBIN 0.4 mg/dL (<0.1-1.0); TOTAL PROTEIN 7.8 g/dL (6.4-8.2)
[2021-09-28] MEDS ORDERED: CIPROFLOXIN HC2.5 M1 OPHTHALMIC (14:53)
[2021-09-28] MEDS ORDERED: PROAIR HFA8.5 GM INH (14:53)
[2021-09-28 14:57] VITALS: BP 140/67
== END 2021-09-28 14:58 | disposition home or self-care (01) ==
LOC: M.ERS 13:21
PROVIDERS: Physician Assistant
DX: H10.9 Unspecified conjunctivitis (principal); J06.9 Acute upper respiratory infection, unspecified; M25.519 Pain in unspecified shoulder; R42 Dizziness and giddiness; I10 Essential (primary) hypertension; F41.9 Anxiety disorder, unspecified; K21.9 Gastro-esophageal reflux disease without esophagitis; Z79.899 Other long term (current) drug therapy

== ENCOUNTER 2021-11-09 11:16 | Emergency (ER) | payer OTHER ==
[~2021-11-09] VITALS: Ht 177.8 cm; Wt 86.2 kg
[~2021-11-09 11:16] MED LIST changes: +CIPROFLOXIN HC2.5 M1 OPHTHALMIC; +PROAIR HFA8.5 GM INH
[2021-11-09] MEDS ORDERED: LIDODERM1 EACH TOP (12:40)
[2021-11-09 12:49] VITALS: BP 183/99
== END 2021-11-09 12:50 | disposition home or self-care (01) ==
LOC: M.ERS 11:16
DX: M25.512 Pain in left shoulder (principal); F41.9 Anxiety disorder, unspecified; K21.9 Gastro-esophageal reflux disease without esophagitis; I10 Essential (primary) hypertension; Z98.890 Other specified postprocedural states; Z79.51 Long term (current) use of inhaled steroids